=== PATIENT | male | born 1955 | race American Indian/Alaskan Native ===

== ENCOUNTER 2017-01-25 19:40 | Emergency (ER) | payer OTHER ==
[2017-01-25 19:47] VITALS: BP 130/84
[2017-01-25] MEDS ORDERED: GI Cocktail Oral Solution 30 ML PO ONE (20:06)
--- NOTE | 2017-01-25 20:09 | EDM.PDOC ---
{null, ED HPI GENERAL MEDICAL PROBLEM - General Chief Complaint: Gastrointestinal Problem Stated Complaint: GALLBLADDER Time Seen by Provider: 01/25/17 20:07 Source of Information: Reports: Patient History Limitations: Reports: No Limitations - History of Present Illness INITIAL COMMENTS - FREE TEXT/NARRATIVE: 4 days h/o epiG pain, was on off but today been constant, no appetite, throat hurts, no energy, only ate some crackers to day. Epigastric Pain Score (Numeric/FACES): 3 - Related Data Allergies Allergy/AdvReac Type Severity Reaction Status Date / Time No Known Allergies Allergy Verified 01/25/17 19:47 Home Meds: Home Meds Aspirin [Halfprin] 81 mg PO DAILY 04/02/14 [History] Multivitamin with Minerals [Multiple Vitamin] 1 tab PO DAILY 01/26/16 [History] Cyanocobalamin (Vitamin B-12) [Vitamin B-12] 1,000 mcg PO DAILY 01/25/17 [ History] Past Medical History - Past Health History Medical/Surgical History: Denies Medical/Surgical History HEENT History: Reports: None Cardiovascular History: Reports: None Respiratory History: Reports: None Gastrointestinal History: Reports: None Genitourinary History: Reports: None Musculoskeletal History: Reports: Back Pain, Chronic Neurological History: Reports: None Psychiatric History: Reports: None Endocrine/Metabolic History: Reports: None Hematologic History: Reports: None Immunologic History: Reports: None Oncologic (Cancer) History: Reports: Prostate Dermatologic History: Reports: None - Infectious Disease History Infectious Disease History: Reports: None - Past Surgical History Head Surgeries/Procedures: Reports: None Social & Family History - Family History Family Medical History: Noncontributory - Tobacco Use Smoking Status *Q: Current Every Day Smoker Years of Tobacco use: 40 Packs/Tins Daily: 0.5 Used Tobacco, but Quit: No Second Hand Smoke Exposure: Yes - Caffeine Use Caffeine Use: Reports: Coffee, Soda, Tea - Alcohol Use Days Per Week of Alcohol Use: 0 - Recreational Drug Use Recreational Drug Use: No ED ROS GENERAL - Review of Systems Review Of Systems: ROS reveals no pertinent complaints other than HPI. ED EXAM, GI/ABD - Physical Exam Exam: See Below Exam Limited By: No Limitations General Appearance: Alert, WD/WN, Mild Distress, Other (discomfort) Ears: Hearing Grossly Normal Throat/Mouth: Normal Voice, No Airway Compromise Head: Atraumatic Neck: Non-Tender, Full Range of Motion Respiratory/Chest: No Respiratory Distress Cardiovascular: Regular Rate, Rhythm GI/Abdominal: Hyperactive Bowel Sounds, Tenderness, Other (epig). No: Distention, Guarding, Rigidity Neurological: Alert, Oriented, Normal Cognition, Normal Gait, No Motor/Sensory Deficits Psychiatric: Flat Affect Skin Exam: Warm, Dry Lymphatic: No Adenopathy Course - Vital Signs Last Recorded V/S: Last Vital Signs Temp 36.1 C 01/25/17 19:43 Pulse 71 01/25/17 19:43 Resp 18 01/25/17 19:43 BP 130/84 01/25/17 19:43 Pulse Ox 99 01/25/17 19:43 - Orders/Labs/Meds Orders: Active Orders 24 hr Category Date Time Status CULTURE STREP A CONFIRMATION [] Stat Lab 01/25/17 20:05 Results STREP SCRN A RAPID W CULT CONF [] Stat Lab 01/25/17 20:05 Results Labs: Laboratory Tests 01/25/17 01/25/17 Range/Units 20:10 20:10 WBC 6.8 (5.0-10.0) 10^3/uL RBC 5.12 (4.6-6.2) 10^6/uL Hgb 15.5 (14.0-18.0) g/dL Hct 44.0 (40.0-54.0) % MCV 85.9 (80-100) fL MCH 30.3 (27.0-34.0) pg MCHC 35.2 H (33.0-35.0) g/dL Plt Count 219 (150-450) 10^3/uL Neut % (Auto) 54.8 (42.2-75.2) % Lymph % (Auto) 32.5 (20.5-50.1) % [place] % (Auto) 8.9 H (2-8) % Eos % (Auto) 2.8 (1.0-3.0) % Baso % (Auto) 1.0 (0.0-1.0) % Sodium 139 (135-145) mmol/L Potassium 3.6 (3.6-5.0) mmol/L Chloride 109 (101-111) mmol/L Carbon Dioxide 23.0 (21.0-31.0) mmol/L Anion Gap 10.6 BUN 24 H (7-18) mg/dL Creatinine 0.9 (0.6-1.3) mg/dL Est Cr Clr Drug Dosing 92.21 mL/min Estimated GFR (MDRD) > 60 BUN/Creatinine Ratio 26.66 Glucose 103 (74-105) mg/dL Calcium 8.9 (8.4-10.2) mg/dl Total Bilirubin 0.8 (0.2-1.0) mg/dL AST 30 (10-42) IU/L ALT 40 (10-60) IU/L Alkaline Phosphatase 73 (42-121) IU/L Total Protein 7.3 (6.7-8.2) g/dl Albumin 4.5 (3.2-5.5) g/dl Globulin 2.8 Albumin/Globulin Ratio 1.61 Amylase 35 (28-100) U/L Lipase 24 (22-51) U/L Meds: Medications Discontinued Medications Generic Name Dose Route Start Last Admin Trade Name Freq PRN Reason Stop Dose Admin Al Hydroxide/Mg Hydroxide 30 ml 01/25/17 20:06 01/25/17 20:11 Gi Cocktail PO 01/25/17 20:07 30 ml ONETIME ONE Administration - Re-Assessments/Exams Free Text/Narrative Re-Assessment/Exam: 01/25/17 21:04 s/p GI cocktail = much better. Departure - Departure Time of Disposition: 21:04 Disposition: Home, Self-Care 01 Condition: good Clinical Impression: GERD (gastroesophageal reflux disease) Qualifiers: Esophagitis presence: with esophagitis Qualified Code(s): K21.0 - Gastro- esophageal reflux disease with esophagitis - Discharge Information Instructions: Food Choices for Gastroesophageal Reflux Disease, Adult Forms: ED Department Discharge Additional Instructions: 1) avoid fatty oily fried foods 2) call family doctor tomorrow for GASTROCOPY and GALL BLADDER ULTRASOUND. 3) recheck as needed rx given: zantac 150mg bid x 20 - My Orders Last 24 Hours: My Active Orders 01/25/17 20:05 CULTURE STREP A CONFIRMATION [RM] Stat STREP SCRN A RAPID W CULT CONF [RM] Stat - Assessment/Plan Last 24 Hours: My Active Orders 01/25/17 20:05 CULTURE STREP A CONFIRMATION [RM] Stat STREP SCRN A RAPID W CULT CONF [RM] Stat }
[2017-01-25 20:37] LABS: CHLORIDE,CL 109 mmol/L (101-111); SODIUM,NA 139 mmol/L (135-145)
== END 2017-01-25 21:11 | disposition home or self-care (01) ==
LOC: DL.ED 19:40
DX: K21.0 Gastro-esophageal reflux disease with esophagitis (principal); F17.210 Nicotine dependence, cigarettes, uncomplicated; Z79.899 Other long term (current) drug therapy; Z79.82 Long term (current) use of aspirin
CPT/HCPCS: 36415; 80053; 82150; 83690; 85025; 87081; 87430; 99284; A9270; 99283

== ENCOUNTER 2017-07-09 20:33 | Emergency (ER) | payer OTHER ==
[2017-07-09 20:39] VITALS: BP 134/75
[2017-07-09] MEDS ORDERED: Nitroglycerin 0.4 MG Tab.SL SL ONE (20:40)
[2017-07-09] MEDS ORDERED: Aspirin 81 MG Tab.Chew PO ONE (20:41)
[2017-07-09] MEDS ORDERED: Aspirin 81 MG Tab.Chew ONE (20:50)
[2017-07-09 21:19] LABS: CHLORIDE,CL 105 mmol/L (101-111); SODIUM,NA 140 mmol/L (135-145)
[2017-07-09] MEDS ORDERED: Morphine 2 MG/ML Syringe IVPUSH ONE (21:51)
--- NOTE | 2017-07-10 03:23 | EDM.PDOC ---
ED HPI GENERAL MEDICAL PROBLEM - General Chief Complaint: Chest Pain Stated Complaint: CHEST PAIN Time Seen by Provider: 07/09/17 20:40 Source of Information: Reports: Patient History Limitations: Reports: No Limitations - History of Present Illness INITIAL COMMENTS - FREE TEXT/NARRATIVE: ED with c/o chest pain with onset approximately 45 minutes [employer]. Described as tightness with radiation to shoulder with intermittent sharp sensations that made him "just see black". Was lying in bed at onset and couldn't get up as made pain worse. Family noted similarr symptoms prior and was told it was referred type pain from disc degeneration n neck. Also patient has had blackouts over past 3 weeks to [employer]. No nausea or sweating with pain, Has felt SOB at times. Pain worse with deep breathing and movement. Onset: Today Location: Reports: Chest Quality: Reports: Sharp, Other (tightness) Worsens with: Reports: Breathing, Movement Associated Symptoms: Denies: Cough, Nausea/Vomiting Middle Chest Pain Score (Numeric/FACES): 5 - Related Data Allergies Allergy/AdvReac Type Severity Reaction Status Date / Time No Known Allergies Allergy Verified 07/09/17 20:36 Home Meds: Home Meds Aspirin [Halfprin] 81 mg PO DAILY 04/02/14 [History] Multivitamin with Minerals [Multiple Vitamin] 1 tab PO DAILY 01/26/16 [History] Past Medical History - Past Health History Medical/Surgical History: Denies Medical/Surgical History HEENT History: Reports: None Cardiovascular History: Reports: None Respiratory History: Reports: None Gastrointestinal History: Reports: None Genitourinary History: Reports: None Musculoskeletal History: Reports: Back Pain, Chronic Neurological History: Reports: None Psychiatric History: Reports: None Endocrine/Metabolic History: Reports: None Hematologic History: Reports: None Immunologic History: Reports: None Oncologic (Cancer) History: Reports: Prostate Dermatologic History: Reports: None - Infectious Disease History Infectious Disease History: Reports: None - Past Surgical History Head Surgeries/Procedures: Reports: None Social & Family History - Family History Family Medical History: Noncontributory - Tobacco Use Smoking Status *Q: Light Tobacco Smoker Years of Tobacco use: 40 Packs/Tins Daily: 0.5 Used Tobacco, but Quit: No Second Hand Smoke Exposure: Yes - Caffeine Use Caffeine Use: Reports: Coffee Other Caffeine Use: lots of coffeetoday6-7 cups - Alcohol Use Days Per Week of Alcohol Use: 0 - Recreational Drug Use Recreational Drug Use: No ED ROS GENERAL - Review of Systems Review Of Systems: See Below Constitutional: Reports: No Symptoms HEENT: Reports: No Symptoms Respiratory: Reports: Other (chest pain with deep breathing) Cardiovascular: Reports: Chest Pain, Syncope GI/Abdominal: Reports: No Symptoms : Reports: No Symptoms Musculoskeletal: Reports: Neck Pain Skin: Reports: No Symptoms Neurological: Reports: No Symptoms ED EXAM, GENERAL - Physical Exam Exam: See Below Exam Limited By: No Limitations General Appearance: Alert, Anxious, Moderate Distress Ears: Normal External Exam, Normal TMs Ear Exam: Bilateral Ear: TM normal Nose: Normal Inspection Throat/Mouth: Normal Inspection Head: Atraumatic, Normocephalic Respiratory/Chest: No Respiratory Distress, Decreased Breath Sounds (bases) Cardiovascular: Normal Peripheral Pulses, Regular Rate, Rhythm, No Edema GI/Abdominal: Normal Bowel Sounds, Soft, Non-Tender Back Exam: Paraspinal Tenderness (cervical), Vertebral Tenderness Extremities: Normal Inspection. No: Pedal Edema Neurological: Alert, Oriented, Normal Cognition Psychiatric: Normal Affect Skin Exam: Warm, Dry, Intact, Normal Color Course - Vital Signs Last Recorded V/S: Last Vital Signs Temp 96.6 F 07/09/17 20:36 Pulse 76 07/09/17 20:36 Resp 20 07/09/17 20:36 BP 134/75 07/09/17 20:36 Pulse Ox 100 07/09/17 20:36 - Orders/Labs/Meds Orders: Active Orders 24 hr Category Date Time Status EKG Documentation Completion [RC] URGENT Care 07/09/17 20:39 Active Labs: Laboratory Tests 07/09/17 07/09/17 07/09/17 Range/Units 20:46 20:46 20:46 WBC 7.3 (5.0-10.0) 10^3/uL RBC 5.45 (4.6-6.2) 10^6/uL Hgb 16.1 (14.0-18.0) g/dL Hct 46.3 (40.0-54.0) % MCV 85.0 (80-100) fL MCH 29.5 (27.0-34.0) pg MCHC 34.8 (33.0-35.0) g/dL Plt Count 232 (150-450) 10^3/uL Neut % (Auto) 58.7 (42.2-75.2) % Lymph % (Auto) 29.4 (20.5-50.1) % [place] % (Auto) 8.5 H (2-8) % Eos % (Auto) 2.9 (1.0-3.0) % Baso % (Auto) 0.5 (0.0-1.0) % PT 9.1 (9.0-12.0) SEC INR 0.9 (0.9-1.2) D-Dimer, Quantitative < 100 (0-400) ng/mL Sodium 140 (135-145) mmol/L Potassium 3.7 (3.6-5.0) mmol/L Chloride 105 (101-111) mmol/L Carbon Dioxide 24.0 (21.0-31.0) mmol/L Anion Gap 14.7 BUN 19 H (7-18) mg/dL Creatinine 1.1 (0.6-1.3) mg/dL Est Cr Clr Drug Dosing 74.46 mL/min Estimated GFR (MDRD) > 60 BUN/Creatinine Ratio 17.27 Glucose 103 (74-105) mg/dL Calcium 9.7 (8.4-10.2) mg/dl Magnesium (1.8-2.5) mg/dL Total Bilirubin 0.8 (0.2-1.0) mg/dL AST 31 (10-42) IU/L ALT 40 (10-60) IU/L Alkaline Phosphatase 99 (42-121) IU/L CK-MB (CK-2) (0.4-4.7) ng/mL Troponin I 0.02 (0.00-0.02) ng/ml Total Protein 7.8 (6.7-8.2) g/dl Albumin 4.9 (3.2-5.5) g/dl Globulin 2.9 Albumin/Globulin Ratio 1.69 Amylase 42 (28-100) U/L Lipase 36 (22-51) U/L Urine Color (YELLOW) Urine Appearance (CLEAR) Urine pH (5.0-9.0) Ur Specific [place] (1.005-1.030) Urine Protein (NEGATIVE) Urine Glucose (UA) (NEGATIVE) Urine Ketones (NEGATIVE) Urine Occult Blood (NEGATIVE) Urine Nitrite (NEGATIVE) Urine Bilirubin (NEGATIVE) Urine Urobilinogen (0.2-1.0) mg/dL Ur Leukocyte Esterase (NEGATIVE) Urine RBC /HPF Urine WBC (0-5/HPF) /HPF Ur Epithelial Cells /HPF Amorphous Sediment (0/HPF) /HPF Urine Bacteria (0-FEW/HPF) /HPF Urine Mucus /LPF Urine Opiates Screen (NEGATIVE) Ur Oxycodone Screen (NEGATIVE) Urine Methadone Screen (NEGATIVE) Ur Barbiturates Screen (NEGATIVE) U Tricyclic Antidepress (NEGATIVE) Ur Phencyclidine Scrn (NEGATIVE) Ur Amphetamine Screen (NEGATIVE) U Methamphetamines Scrn (NEGATIVE) Urine MDMA Screen (NEGATIVE) U Benzodiazepines Scrn (NEGATIVE) Urine Cocaine Screen (NEGATIVE) U Marijuana (THC) Screen (NEGATIVE) 07/09/17 07/09/17 07/09/17 Range/Units 20:46 20:46 21:15 WBC (5.0-10.0) 10^3/uL RBC (4.6-6.2) 10^6/uL Hgb (14.0-18.0) g/dL Hct (40.0-54.0) % MCV (80-100) fL MCH (27.0-34.0) pg MCHC (33.0-35.0) g/dL Plt Count (150-450) 10^3/uL Neut % (Auto) (42.2-75.2) % Lymph % (Auto) (20.5-50.1) % [place] % (Auto) (2-8) % Eos % (Auto) (1.0-3.0) % Baso % (Auto) (0.0-1.0) % PT (9.0-12.0) SEC INR (0.9-1.2) D-Dimer, Quantitative (0-400) ng/mL Sodium (135-145) mmol/L Potassium (3.6-5.0) mmol/L Chloride (101-111) mmol/L Carbon Dioxide (21.0-31.0) mmol/L Anion Gap BUN (7-18) mg/dL Creatinine (0.6-1.3) mg/dL Est Cr Clr Drug Dosing mL/min Estimated GFR (MDRD) BUN/Creatinine Ratio Glucose (74-105) mg/dL Calcium (8.4-10.2) mg/dl Magnesium 2.1 (1.8-2.5) mg/dL Total Bilirubin (0.2-1.0) mg/dL AST (10-42) IU/L ALT (10-60) IU/L Alkaline Phosphatase (42-121) IU/L CK-MB (CK-2) 1.10 (0.4-4.7) ng/mL Troponin I (0.00-0.02) ng/ml Total Protein (6.7-8.2) g/dl Albumin (3.2-5.5) g/dl Globulin Albumin/Globulin Ratio Amylase (28-100) U/L Lipase (22-51) U/L Urine Color (YELLOW) Urine Appearance (CLEAR) Urine pH (5.0-9.0) Ur Specific [place] (1.005-1.030) Urine Protein (NEGATIVE) Urine Glucose (UA) (NEGATIVE) Urine Ketones (NEGATIVE) Urine Occult Blood (NEGATIVE) Urine Nitrite (NEGATIVE) Urine Bilirubin (NEGATIVE) Urine Urobilinogen (0.2-1.0) mg/dL Ur Leukocyte Esterase (NEGATIVE) Urine RBC /HPF Urine WBC (0-5/HPF) /HPF Ur Epithelial Cells /HPF Amorphous Sediment (0/HPF) /HPF Urine Bacteria (0-FEW/HPF) /HPF Urine Mucus /LPF Urine Opiates Screen Negative (NEGATIVE) Ur Oxycodone Screen Negative (NEGATIVE) Urine Methadone Screen Negative (NEGATIVE) Ur Barbiturates Screen Negative (NEGATIVE) U Tricyclic Antidepress Negative (NEGATIVE) Ur Phencyclidine Scrn Negative (NEGATIVE) Ur Amphetamine Screen Negative (NEGATIVE) U Methamphetamines Scrn Negative (NEGATIVE) Urine MDMA Screen Negative (NEGATIVE) U Benzodiazepines Scrn Negative (NEGATIVE) Urine Cocaine Screen Negative (NEGATIVE) U Marijuana (THC) Screen Negative (NEGATIVE) 07/09/17 Range/Units 21:15 WBC (5.0-10.0) 10^3/uL RBC (4.6-6.2) 10^6/uL Hgb (14.0-18.0) g/dL Hct (40.0-54.0) % MCV (80-100) fL MCH (27.0-34.0) pg MCHC (33.0-35.0) g/dL Plt Count (150-450) 10^3/uL Neut % (Auto) (42.2-75.2) % Lymph % (Auto) (20.5-50.1) % [place] % (Auto) (2-8) % Eos % (Auto) (1.0-3.0) % Baso % (Auto) (0.0-1.0) % PT (9.0-12.0) SEC INR (0.9-1.2) D-Dimer, Quantitative (0-400) ng/mL Sodium (135-145) mmol/L Potassium (3.6-5.0) mmol/L Chloride (101-111) mmol/L Carbon Dioxide (21.0-31.0) mmol/L Anion Gap BUN (7-18) mg/dL Creatinine (0.6-1.3) mg/dL Est Cr Clr Drug Dosing mL/min Estimated GFR (MDRD) BUN/Creatinine Ratio Glucose (74-105) mg/dL Calcium (8.4-10.2) mg/dl Magnesium (1.8-2.5) mg/dL Total Bilirubin (0.2-1.0) mg/dL AST (10-42) IU/L ALT (10-60) IU/L Alkaline Phosphatase (42-121) IU/L CK-MB (CK-2) (0.4-4.7) ng/mL Troponin I (0.00-0.02) ng/ml Total Protein (6.7-8.2) g/dl Albumin (3.2-5.5) g/dl Globulin Albumin/Globulin Ratio Amylase (28-100) U/L Lipase (22-51) U/L Urine Color Yellow (YELLOW) Urine Appearance Slightly cloudy (CLEAR) Urine pH 5.5 (5.0-9.0) Ur Specific [place] 1.025 (1.005-1.030) Urine Protein Negative (NEGATIVE) Urine Glucose (UA) Negative (NEGATIVE) Urine Ketones Trace H (NEGATIVE) Urine Occult Blood Negative (NEGATIVE) Urine Nitrite Negative (NEGATIVE) Urine Bilirubin Negative (NEGATIVE) Urine Urobilinogen 1.0 (0.2-1.0) mg/dL Ur Leukocyte Esterase Negative (NEGATIVE) Urine RBC 0-5 /HPF Urine WBC 0-5 (0-5/HPF) /HPF Ur Epithelial Cells Rare /HPF Amorphous Sediment Rare (0/HPF) /HPF Urine Bacteria Rare (0-FEW/HPF) /HPF Urine Mucus Moderate H /LPF Urine Opiates Screen (NEGATIVE) Ur Oxycodone Screen (NEGATIVE) Urine Methadone Screen (NEGATIVE) Ur Barbiturates Screen (NEGATIVE) U Tricyclic Antidepress (NEGATIVE) Ur Phencyclidine Scrn (NEGATIVE) Ur Amphetamine Screen (NEGATIVE) U Methamphetamines Scrn (NEGATIVE) Urine MDMA Screen (NEGATIVE) U Benzodiazepines Scrn (NEGATIVE) Urine Cocaine Screen (NEGATIVE) U Marijuana (THC) Screen (NEGATIVE) Meds: Medications Discontinued Medications Generic Name Dose Route Start Last Admin Trade Name Darrion PRN Reason Stop Dose Admin Aspirin 162 mg 07/09/17 20:41 Aspirin PO 07/09/17 20:42 ONETIME ONE Aspirin Confirm 07/09/17 20:50 Aspirin Administered 07/09/17 20:51 Dose 162 mg .ROUTE .STK-MED ONE Morphine Sulfate 2 mg 07/09/17 21:51 07/09/17 21:54 Morphine IVPUSH 07/09/17 21:52 2 mg ONETIME ONE Administration Nitroglycerin 0.4 mg 07/09/17 20:40 Nitrostat SL 07/09/17 20:41 ONETIME ONE - Radiology Interpretation Free Text/Narrative:: CT head no acute findings CXR atelectasis left base - Re-Assessments/Exams Free Text/Narrative Re-Assessment/Exam: Patient assisted to upright to assess lungs, Immediately following , appeared dazed, verbal responses slowed, disoriented to place, could not give his name. Slow clearing of mentation. Vitals stable. EKG unremarkable. NSR . Discussion with family, daughters note patient thought to have seizure hx over 30 years ago. Had been worked up in [place] and [place] and unable to "find anything". No prior hx of being on seizure medications. Last workup for neck pain 1-[address] Ba ED, accepting of patient in transfer. Tx via [facility]. Departure - Departure Time of Disposition: 21:45 Disposition: DC/Tfer to Acute Hospital 02 Reason for Transfer *Q: Other Condition: Undetermined Clinical Impression: Atypical chest pain Altered mental status, unspecified Qualifiers: Altered mental status type: disorientation Qualified Code(s): R41.0 - Disorientation, unspecified Referrals: Paul Bennett [Primary Care Provider] - Forms: ED Department Discharge - My Orders Last 24 Hours: My Active Orders 07/09/17 20:39 EKG Documentation Completion [RC] URGENT - Assessment/Plan Last 24 Hours: My Active Orders 07/09/17 20:39 EKG Documentation Completion [RC] URGENT
--- NOTE | 2017-07-10 16:22 | EKG ---
07/09/2017 - DEVANTE MCKENZIE I reviewed the EKG and agree with the machine reading. [facility] /[id number]
== END 2017-07-09 22:10 ==
LOC: DL.ED 20:33
DX: R07.89 Other chest pain (principal); R41.0 Disorientation, unspecified; F17.210 Nicotine dependence, cigarettes, uncomplicated; Z79.82 Long term (current) use of aspirin
CPT/HCPCS: 36415; 70450; 71010; 80053; 80305; 81001; 82150; 82553; 83690; 83735; 84484; 85025; 85379; 85610; 93005; 99285; J2270

== ENCOUNTER → 2017-08-28 | Day surgery (SDC) | payer OTHER ==
[~2017-08-28] MED LIST: Dextrose 5%-0.45% NaCl 1,000 ML IV ONE; Dextrose 5%-0.45% NaCl 1,000 ML IV SCH; Midazolam 1 MG/ML 2 ML SDV IV ONE; Midazolam 1 MG/ML 2 ML SDV ONE; Sodium Chloride 0.9% 10 ML Syringe FLUSH PRN; fentaNYL 100 MCG/2 ML SDV IV ONE; fentaNYL 100 MCG/2 ML SDV ONE
--- NOTE | 2017-08-28 18:20 | OR ---
DATE: 08/28/2017 PROCEDURE: Total colonoscopy, NBI, and cold snare polypectomy. INSTRUMENT USED: CF-H180AL Olympus videocolonoscope. PREMEDICATIONS: Fentanyl 100 mcg intravenous and Versed 4 mg intravenous. Nasal O2 cannula. The procedure was done under pulse oximetry, BP recording, and court recording monitor. INDICATION: The patient with previous colonic tubular adenoma. Surveillance colonoscopic examination is done for detection of any polypoid lesions and removal, endoscopic hemostasis therapy if needed. DESCRIPTION OF PROCEDURE: Initial rectal exam was unremarkable. Rigid anoscopy showed internal hemorrhoids without bleeding from them. The colonoscope was passed with ease. Few scattered diverticula were noted in the distal left colon. The scope was passed with ease up to the ileocecal area, photographs were taken of the normal-appearing cecum identified by the landmarks of appendiceal orifice and double-bulged ileocecal folds. No bleeding was noted from any of the visualized areas at the commencement of the examination. No stricture. No vascular ectasia. No large isolated ulcerations seen. No evidence of diffuse inflammatory bowel disease in the form of friability, contact bleeding, or ulcerations. In the mid ascending colon, 3 mm sized benign- appearing polyp was noted, NBI views were obtained, cold snare polypectomy was done, and the tissue was retrieved and sent for histopathology. Probing the proximal sides of folds and flexures using adequate distention and clearing up the stool material, withdrawal of the scope was made. No bleeding was noted from any of the visualized areas at the completion of examination. IMPRESSION: 1. Internal hemorrhoids. 2. Diverticulosis. 3. Diminutive ascending colon polyp. The patient tolerated the procedure well. [facility] /[id number]
--- NOTE | 2017-08-28 18:20 | LETTER ---
08/28/2017 Ktaherine Marsh MD [facility] [address] [place] [address] RE: DEVANTE MAC : [address] Marsh: Mr. Devante Mac had colonoscopic examination done this morning and he tolerated the procedure well. I herewith send a copy of the endoscopy note and photographs for your review. Thank you. Sincerely, [facility] /[id number]
== END ==
LOC: DL.ENDO 05:40
PROVIDERS: ATTEND Internal Medicine Gastroenterology
DX: Z12.11 Encounter for screening for malignant neoplasm of colon (principal); F17.210 Nicotine dependence, cigarettes, uncomplicated; E66.09 Other obesity due to excess calories; M19.90 Unspecified osteoarthritis, unspecified site; K64.8 Other hemorrhoids; K57.30 Diverticulosis of large intestine without perforation or abscess without bleeding; D12.2 Benign neoplasm of ascending colon; Z86.010 Personal history of colon polyps; Z85.46 Personal history of malignant neoplasm of prostate
CPT/HCPCS: 45385; J2250; J3010; J7042

== ENCOUNTER 2018-10-27 16:41 | Emergency (ER) | payer OTHER ==
[2018-10-27] MEDS ORDERED: Codeine/guaiFENesin 100-10 MG/5 ML Syrup 5 ML Cup PO ONE ×2 (16:42→16:55)
[2018-10-27] MEDS ORDERED: Amoxicillin/Clavulanate K 875-125 MG Tab PO ONE (16:54)
[2018-10-27] MEDS ORDERED: methylPREDNISolone Sodium Succinate 125 MG/2 ML SDV IVPUSH ONE (16:54)
[2018-10-27 16:56] VITALS: BP 131/87
--- NOTE | 2018-10-27 17:02 | EDM.PDOC ---
Scribed by Yovana Dunn 10/27/18 [id number] for Kilo Swift PA ED HPI GENERAL MEDICAL PROBLEM - General Chief Complaint: Respiratory Problem Stated Complaint: HEADACHE,SORE THROAT,COUGH Time Seen by Provider: 10/27/18 16:50 Source of Information: Reports: Patient, RN, RN Notes Reviewed History Limitations: Reports: No Limitations - History of Present Illness INITIAL COMMENTS - FREE TEXT/NARRATIVE: Patient states that he started on not feeling well. On Sunday he had drainage and a headache. He now has a cough and sneeze. Last night he had increased pain in his neck. He was pitting blood yesterday. Onset Date: 10/24/18 Duration: Getting Worse Location: Reports: Generalized Quality: Reports: Ache Severity: Moderate Improves with: Reports: None Worsens with: Reports: None Associated Symptoms: Reports: No Other Symptoms - Related Data Allergies Allergy/AdvReac Type Severity Reaction Status Date / Time No Known Allergies Allergy Verified 08/27/17 06:56 Home Meds: Home Meds Aspirin [Halfprin] 81 mg PO DAILY 04/02/14 [History] Multivitamin with Minerals [Multiple Vitamin] 1 tab PO DAILY 01/26/16 [History] Cyanocobalamin (Vitamin B-12) [Cyanocobalamin Injection] 1 injection IM .MONTHLY 08/27/17 [History] Gabapentin [Neurontin] 1 cap PO TID 08/27/17 [History] Ibuprofen 1 tab PO Q6H PRN 08/27/17 [History] Past Medical History - Past Health History Medical/Surgical History: Denies Medical/Surgical History HEENT History: Reports: None Cardiovascular History: Reports: None Respiratory History: Reports: COPD, Sleep Apnea Gastrointestinal History: Reports: None, Colon Polyp Genitourinary History: Reports: None, Prostate Disorder Musculoskeletal History: Reports: Arthritis, Back Pain, Chronic, Fracture, Neck Pain, Chronic, Other (See Below) Other Musculoskeletal History: SHOULDER PAIN D/T INCOMPLETE TEAR OF ROTATOR CUFF Neurological History: Reports: Headaches, Chronic, Other (See Below) Other Neuro History: ENCEPHALOPATHY Psychiatric History: Reports: None Endocrine/Metabolic History: Reports: None Hematologic History: Reports: None Immunologic History: Reports: None Oncologic (Cancer) History: Reports: Prostate Dermatologic History: Reports: None - Infectious Disease History Infectious Disease History: Reports: None - Past Surgical History Head Surgeries/Procedures: Reports: None HEENT Surgical History: Reports: Other (See Below) Other HEENT Surgeries/Procedures: UVULAPALATOPLASTY. SEPTOPLASTY Cardiovascular Surgical History: Reports: Other (See Below) Other Cardiovascular Surgeries/Procedures: CARDIAC CATHETERIZATION GI Surgical History: Reports: Polypectomy Male Surgical History: Reports: Prostatectomy, Other (See Below) Other Male Surgeries/Procedures: BLADDER SHINCTEROTOMY Musculoskeletal Surgical History: Reports: Other (See Below) Other Musculoskeletal Surgeries/Procedures:: ORIF OF FRACTURED RIGHT ANKLE Social & Family History - Family History Family Medical History: Noncontributory - Caffeine Use Caffeine Use: Reports: Coffee Other Caffeine Use: lots of coffeetoday6-7 cups ED ROS GENERAL - Review of Systems Review Of Systems: ROS reveals no pertinent complaints other than HPI. ED EXAM, GENERAL - Physical Exam Exam: See Below Exam Limited By: No Limitations General Appearance: Alert, WD/WN, No Apparent Distress Eye Exam: Bilateral Eye: EOMI, Normal Inspection, PERRL Ears: Normal External Exam, Normal Canal, Hearing Grossly Normal, Normal TMs Nose: Normal Inspection, Normal Mucosa, No Blood Throat/Mouth: Normal Inspection, Normal Lips, Normal Teeth, Normal Gums, Normal Oropharynx, Normal Voice, No Airway Compromise Head: Other (sinus pressure) Neck: Other (generalized chronic pain which increases with cough) Respiratory/Chest: No Respiratory Distress, Lungs Clear, Normal Breath Sounds, No Accessory Muscle Use, Chest Non-Tender Cardiovascular: Normal Peripheral Pulses, Regular Rate, Rhythm, No Edema, No Gallop, No JVD, No Murmur, No Rub GI/Abdominal: Normal Bowel Sounds, Soft, Non-Tender, No Organomegaly, No Distention, No Abnormal Bruit, No Mass (Male) Exam: Deferred Rectal (Males) Exam: Deferred Back Exam: Normal Inspection, Full Range of Motion, NT Extremities: Normal Inspection, Normal Range of Motion, Non-Tender, Normal Capillary Refill, No Pedal Edema Neurological: Alert, Oriented, CN II-XII Intact, Normal Cognition, Normal Gait, Normal Reflexes, No Motor/Sensory Deficits Psychiatric: Normal Affect, Normal Mood Skin Exam: Warm, Dry, Intact, Normal Color, No Rash Lymphatic: No Adenopathy Course - Vital Signs Last Recorded V/S: Last Vital Signs Temp 36.8 C 10/27/18 16:51 Pulse 80 10/27/18 16:51 Resp 18 10/27/18 16:51 BP 131/87 10/27/18 16:51 Pulse Ox 99 10/27/18 16:51 - Orders/Labs/Meds Meds: Medications Discontinued Medications Generic Name Dose Route Start Last Admin Trade Name Darrion PRN Reason Stop Dose Admin Amoxicillin/Clavulanate Potassium 1 tab 10/27/18 16:54 Augmentin 875 Mg/125 Mg PO 10/27/18 16:55 ONETIME ONE Guaifenesin/Codeine Phosphate 5 ml 10/27/18 16:55 Robitussin Ac PO 10/27/18 16:56 ONETIME ONE Methylprednisolone Sodium Succinate 125 mg 10/27/18 16:54 Solu-Medrol IVPUSH 10/27/18 16:55 ONETIME ONE Departure - Departure Time of Disposition: 16:58 Disposition: Home, Self-Care 01 Condition: Fair Clinical Impression: Maxillary sinusitis, acute Qualifiers: Recurrence: non-recurrent Qualified Code(s): J01.00 - Acute maxillary sinusitis , unspecified - Discharge Information *PRESCRIPTION DRUG MONITORING PROGRAM REVIEWED*: Not Applicable *COPY OF PRESCRIPTION DRUG MONITORING REPORT IN PATIENT SWEETIE: Not Applicable Instructions: Sinusitis, Adult, [id number] Forms: ED Department Discharge Care Plan Goals: The patient was advised of the examination results during the visit. The patient was given an injection of SoluMedrol, oral dose of Robitussin AC and Augmentin while in the ED. The patient was discharged with a script for Augmentin (500/125) to take 1 by mouth 2 times per day for 10 days and Robitussin AC #100 mL to take 10 mL by mouth at bedtime as needed for cough. The patient was also sent home with a dose of Robitussin AC to take at bedtime tonight. If the patient has any additional symptoms or concerns, the patient should either visit his primary care facility or return to the emergency department. I have read and agree with the documentation that has been completed regarding this visit. By signing this record, I attest that the documentation was completed in my physical presence and is an accurate record of the encounter.
[2018-10-27] MEDS ORDERED: Codeine/guaiFENesin 100-10 MG/5 ML Syrup 5 ML Cup ONE (17:11)
== END 2018-10-27 17:28 | disposition home or self-care (01) ==
LOC: DL.ED 16:41
DX: J01.00 Acute maxillary sinusitis, unspecified (principal); Z79.82 Long term (current) use of aspirin; Z79.899 Other long term (current) drug therapy
CPT/HCPCS: 96372; 99283; A9270-GY; J2930

== ENCOUNTER 2019-02-28 21:58 | Emergency (ER) | payer OTHER ==
[2019-02-28 22:04] VITALS: BP 144/66
--- NOTE | 2019-02-28 22:09 | EDM.PDOC ---
ED HPI GENERAL MEDICAL PROBLEM - General Chief Complaint: Respiratory Problem Stated Complaint: BROUGHT BY AMBULNACE Time Seen by Provider: 02/28/19 22:08 Source of Information: Reports: Patient History Limitations: Reports: No Limitations - History of Present Illness INITIAL COMMENTS - FREE TEXT/NARRATIVE: had neck surgery yesterday, d/c today, got home at noon was tired and went to sleep. then woke up with SOB and been coughing up brown tinged mucous all day. Head Pain Score (Numeric/FACES): 5 Chest Pain Score (Numeric/FACES): 5 - Related Data Allergies Allergy/AdvReac Type Severity Reaction Status Date / Time No Known Allergies Allergy Verified 08/27/17 06:56 Home Meds: Home Meds Aspirin [Halfprin] 81 mg PO DAILY 04/02/14 [History] Multivitamin with Minerals [Multiple Vitamin] 1 tab PO DAILY 01/26/16 [History] Cyanocobalamin (Vitamin B-12) [Cyanocobalamin Injection] 1 injection IM .MONTHLY 08/27/17 [History] Gabapentin [Neurontin] 1 cap PO TID 08/27/17 [History] Ibuprofen 1 tab PO Q6H PRN 08/27/17 [History] Past Medical History - Past Health History Medical/Surgical History: Denies Medical/Surgical History HEENT History: Reports: None Cardiovascular History: Reports: None Respiratory History: Reports: COPD, Sleep Apnea Gastrointestinal History: Reports: None, Colon Polyp Genitourinary History: Reports: None, Prostate Disorder Musculoskeletal History: Reports: Arthritis, Back Pain, Chronic, Fracture, Neck Pain, Chronic, Other (See Below) Other Musculoskeletal History: SHOULDER PAIN D/T INCOMPLETE TEAR OF ROTATOR CUFF Neurological History: Reports: Headaches, Chronic, Other (See Below) Other Neuro History: ENCEPHALOPATHY Psychiatric History: Reports: None Endocrine/Metabolic History: Reports: None Hematologic History: Reports: None Immunologic History: Reports: None Oncologic (Cancer) History: Reports: Prostate Dermatologic History: Reports: None - Infectious Disease History Infectious Disease History: Reports: None - Past Surgical History Head Surgeries/Procedures: Reports: None HEENT Surgical History: Reports: Other (See Below) Other HEENT Surgeries/Procedures: UVULAPALATOPLASTY. SEPTOPLASTY Cardiovascular Surgical History: Reports: Other (See Below) Other Cardiovascular Surgeries/Procedures: CARDIAC CATHETERIZATION GI Surgical History: Reports: Polypectomy Male Surgical History: Reports: Prostatectomy, Other (See Below) Other Male Surgeries/Procedures: BLADDER SHINCTEROTOMY Musculoskeletal Surgical History: Reports: Other (See Below) Other Musculoskeletal Surgeries/Procedures:: ORIF OF FRACTURED RIGHT ANKLE Social & Family History - Family History Family Medical History: Noncontributory - Tobacco Use Smoking Status *Q: Current Every Day Smoker Years of Tobacco use: 21 Packs/Tins Daily: 0.3 - Caffeine Use Caffeine Use: Reports: Coffee Other Caffeine Use: lots of coffeetoday6-7 cups - Recreational Drug Use Recreational Drug Use: No ED ROS GENERAL - Review of Systems Review Of Systems: ROS reveals no pertinent complaints other than HPI. ED EXAM, GENERAL - Physical Exam Exam: See Below Course - Vital Signs Last Recorded V/S: Last Vital Signs Temp 36.9 C 02/28/19 22:01 Pulse 78 02/28/19 22:01 Resp 18 02/28/19 22:01 BP 144/66 H 02/28/19 22:01 Pulse Ox 96 02/28/19 22:01 - Orders/Labs/Meds Orders: Active Orders 24 hr Category Date Time Status EKG 12 Lead [EKG Documentation Completion] [RC] STAT Care 02/28/19 22:15 Active Labs: Laboratory Tests 02/28/19 02/28/19 02/28/19 Range/Units 22:16 22:16 22:16 WBC 16.5 H (5.0-10.0) 10^3/uL RBC 4.69 (4.6-6.2) 10^6/uL Hgb 14.1 D (14.0-18.0) g/dL Hct 40.4 (40.0-54.0) % MCV 86.1 (80-100) fL MCH 30.1 (27.0-34.0) pg MCHC 34.9 (33.0-35.0) g/dL Plt Count 225 (150-450) 10^3/uL Neut % (Auto) 79.3 H (42.2-75.2) % Lymph % (Auto) 12.3 L (20.5-50.1) % [place] % (Auto) 8.1 H (2-8) % Eos % (Auto) 0.1 L (1.0-3.0) % Baso % (Auto) 0.2 (0.0-1.0) % D-Dimer, Quantitative 179 (0-400) ng/mL Sodium 140 (135-145) mmol/L Potassium 3.5 L (3.6-5.0) mmol/L Chloride 107 (101-111) mmol/L Carbon Dioxide 23.0 (21.0-31.0) mmol/L Anion Gap 13.5 BUN 15 (7-18) mg/dL Creatinine 1.2 (0.6-1.3) mg/dL Est Cr Clr Drug Dosing 66.46 mL/min Estimated GFR (MDRD) > 60 BUN/Creatinine Ratio 12.50 Glucose 113 H (74-105) mg/dL Calcium 8.5 (8.4-10.2) mg/dl Total Bilirubin 0.8 (0.2-1.0) mg/dL AST 29 (10-42) IU/L ALT 33 (10-60) IU/L Alkaline Phosphatase 72 (42-121) IU/L Troponin I < 0.02 (0.00-0.02) ng/ml Total Protein 6.7 (6.7-8.2) g/dl Albumin 4.0 (3.2-5.5) g/dl Globulin 2.7 Albumin/Globulin Ratio 1.48 - Re-Assessments/Exams Free Text/Narrative Re-Assessment/Exam: 03/01/19 00:37 results discussed with pt & family. pt states feels fine now and prefers to go home Departure - Departure Time of Disposition: 00:38 Disposition: Home, Self-Care 01 Condition: Good Clinical Impression: Post-op pain Dyspnea Qualifiers: Dyspnea type: other forms of dyspnea Qualified Code(s): R06.09 - Other forms of dyspnea - Discharge Information Instructions: Shortness of Breath, Adult, [id number] Forms: ED Department Discharge Additional Instructions: 1) rest 2) don't sleep flat 3) sleep in recliner 4) recheck if there is any change or concern - My Orders Last 24 Hours: My Active Orders 02/28/19 22:15 EKG 12 Lead [EKG Documentation Completion] [RC] STAT - Assessment/Plan Last 24 Hours: My Active Orders 02/28/19 22:15 EKG 12 Lead [EKG Documentation Completion] [RC] STAT
[2019-02-28 22:40] LABS: ANION GAP 13.5; CHLORIDE,CL 107 mmol/L (101-111); SODIUM,NA 140 mmol/L (135-145)
== END 2019-03-01 00:54 | disposition home or self-care (01) ==
LOC: DL.ED 21:58
DX: G89.18 Other acute postprocedural pain (principal); R06.02 Shortness of breath; F17.210 Nicotine dependence, cigarettes, uncomplicated; Z79.899 Other long term (current) drug therapy
CPT/HCPCS: 36415; 70360; 71046; 80053; 84484; 85025; 85379; 93005; 99285-25

== ENCOUNTER 2020-12-31 19:22 | Emergency (ER) | payer OTHER ==
[2020-12-31 19:49] VITALS: BP 142/75; PULSE 78
[2020-12-31] MEDS ORDERED: Sodium Chloride 0.9% 10 ML Syringe FLUSH PRN (20:10)
[2020-12-31] MEDS ORDERED: Iopamidol 612 MG/ML 100 ML Bottle IVPUSH ONE (20:40)
--- NOTE | 2020-12-31 20:42 | EDM.PDOC ---
ED HPI GENERAL MEDICAL PROBLEM - General Chief Complaint: ENT Problem Stated Complaint: THROAT IS CLOSING, TROUBLE BREATHING Time Seen by Provider: 12/31/20 20:00 Source of Information: Reports: Patient History Limitations: Reports: No Limitations - History of Present Illness INITIAL COMMENTS - FREE TEXT/NARRATIVE: Patient comes emergency department today with complaints of difficulty swallowing and chest pain. This patient for the past 10 days has had a intermittent tightening around his neck and intermittent tightness in his chest. It is painful for him to swallow even water. He has not been able to eat much. He has not been able to drink much. He has had no recent trauma injury or procedures. He is worried that it has something to do with his prostate cancer that he had treatment with radiation which was discontinued in September. Up until 10 days ago he had no difficulty with this. He has waxing and waning tightness in his throat and his chest comes and goes on its own. It is difficult for him to breathe at times he reports. He is not short of breath at this time. He has no pain in his chest at this time. He has had no weakness dizziness lightheadedness. No palpitations palpitations syncope. He has had no excessive salivation or drooling. The only surgery he has had in the past in the neck region was when he had tonsillectomy as a child. Throat Pain Score (Numeric/FACES): 2 - Related Data Allergies Allergy/AdvReac Type Severity Reaction Status Date / Time No Known Allergies Allergy Verified 12/31/20 19:49 Home Meds: Home Meds Aspirin [Halfprin] 81 mg PO DAILY 04/02/14 [History] Multivitamin with Minerals [Multiple Vitamin] 1 tab PO DAILY 01/26/16 [History] Ibuprofen 1 tab PO Q6H PRN 08/27/17 [History] Cyclobenzaprine [Flexeril] 5 mg PO BEDTIME 08/01/19 [History] oxyCODONE 5 mg PO Q6HR 08/01/19 [History] Past Medical History - Past Health History Medical/Surgical History: Denies Medical/Surgical History HEENT History: Reports: None Cardiovascular History: Reports: None Respiratory History: Reports: COPD, Sleep Apnea Gastrointestinal History: Reports: None, Colon Polyp Genitourinary History: Reports: None, Prostate Disorder Musculoskeletal History: Reports: Arthritis, Back Pain, Chronic, Fracture, Neck Pain, Chronic, Other (See Below) Other Musculoskeletal History: SHOULDER PAIN D/T INCOMPLETE TEAR OF ROTATOR CUFF Neurological History: Reports: Headaches, Chronic, Other (See Below) Other Neuro History: ENCEPHALOPATHY Psychiatric History: Reports: None Endocrine/Metabolic History: Reports: None Hematologic History: Reports: None Immunologic History: Reports: None Oncologic (Cancer) History: Reports: Prostate Dermatologic History: Reports: None - Infectious Disease History Infectious Disease History: Reports: None - Past Surgical History Head Surgeries/Procedures: Reports: None HEENT Surgical History: Reports: Other (See Below) Other HEENT Surgeries/Procedures: UVULAPALATOPLASTY. SEPTOPLASTY Cardiovascular Surgical History: Reports: Other (See Below) Other Cardiovascular Surgeries/Procedures: CARDIAC CATHETERIZATION GI Surgical History: Reports: Polypectomy Male Surgical History: Reports: Prostatectomy, Other (See Below) Other Male Surgeries/Procedures: BLADDER SHINCTEROTOMY Musculoskeletal Surgical History: Reports: Other (See Below) Other Musculoskeletal Surgeries/Procedures:: ORIF OF FRACTURED RIGHT ANKLE Social & Family History - Family History Family Medical History: No Pertinent Family History - Tobacco Use Tobacco Use Status *Q: Current Every Day Tobacco User Years of Tobacco use: 47 Packs/Tins Daily: 0.5 - Caffeine Use Caffeine Use: Reports: Coffee Other Caffeine Use: lots of coffeetoday6-7 cups - Recreational Drug Use Recreational Drug Use: No ED ROS GENERAL - Review of Systems Review Of Systems: Comprehensive ROS is negative, except as noted in HPI. ED EXAM, GENERAL - Physical Exam Exam: See Below Exam Limited By: No Limitations General Appearance: Alert, WD/WN, No Apparent Distress Eye Exam: Bilateral Eye: EOMI, PERRL Ears: Normal External Exam, Normal Canal, Normal TMs Nose: Normal Inspection, Normal Mucosa, No Blood Throat/Mouth: Normal Lips, Normal Teeth, Normal Gums, Normal Voice, No Airway Compromise. No: Normal Oropharynx (His uvula is absent and his tonsils as well. the posteiror pharynx is white erythematous without exudate. No swelling. No drooling. ) Head: Atraumatic, Normocephalic Neck: Supple, Full Range of Motion. No: Normal Inspection (he has generalized tenderness throughout the anterior neck on palpation. Externally appears normal. ), Lymphadenopathy (L), Lymphadenopathy (R) Respiratory/Chest: No Respiratory Distress, Lungs Clear, Normal Breath Sounds, No Accessory Muscle Use, Chest Non-Tender Cardiovascular: Normal Peripheral Pulses, Regular Rate, Rhythm Peripheral Pulses: 2+: Radial (L), Radial (R), Posterior Tibial (L), Posterior Tibial (R), Dorsalis Pedis (L), Dorsalis Pedis (R) GI/Abdominal: Normal Bowel Sounds, Soft, Non-Tender (Male) Exam: Deferred Rectal (Males) Exam: Deferred, Prostate Nodule Back Exam: Normal Inspection Extremities: Normal Inspection, Normal Range of Motion, No Pedal Edema, Normal Capillary Refill Neurological: Alert, Oriented, CN II-XII Intact, Normal Cognition, No Motor/Sensory Deficits Psychiatric: Normal Affect, Normal Mood Skin Exam: Warm, Dry, Intact, Normal Color, No Rash Lymphatic: No Adenopathy #1 Interpretation EKG Date: 12/31/20 Time: 20:27 Rhythm: NSR Rate (Beats/Min): 67 [place]: Normal P-Wave: Present QRS: Normal ST-T: Normal QT: Normal Comparison: No Change Course - Vital Signs Last Recorded V/S: Last Vital Signs Temp 97.8 F 12/31/20 19:36 Pulse 78 12/31/20 19:36 Resp 19 12/31/20 19:36 BP 142/75 H 12/31/20 19:36 Pulse Ox 100 12/31/20 19:36 - Orders/Labs/Meds Orders: Active Orders 24 hr Category Date Time Status CULTURE STREP A CONFIRMATION [] Stat Lab 12/31/20 21:30 Results STREP SCRN A RAPID W CULT CONF [RM] Stat Lab 12/31/20 21:30 Results Peripheral IV Insertion Adult [OM.PC] Stat Oth 12/31/20 20:09 Ordered Labs: Laboratory Tests 12/31/20 12/31/20 12/31/20 Range/Units 20:25 20:25 20:25 WBC 6.0 (5.0-10.0) 10^3/uL RBC 4.95 (4.6-6.2) 10^6/uL Hgb 15.0 (14.0-18.0) g/dL Hct 43.6 (40.0-54.0) % MCV 88.1 (80-100) fL MCH 30.3 (27.0-34.0) pg MCHC 34.4 (33.0-35.0) g/dL Plt Count 221 D (150-450) 10^3/uL Neut % (Auto) 72.8 (42.2-75.2) % Lymph % (Auto) 14.7 L (20.5-50.1) % Jay % (Auto) 8.0 (2-8) % Eos % (Auto) 3.7 H (1.0-3.0) % Baso % (Auto) 0.8 (0.0-1.0) % PT 10.4 (9.0-12.0) SEC INR 1.0 (0.9-1.2) APTT 27.4 (22.0-34.0) SEC Sodium 145 (136-145) mmol/L Potassium 3.6 (3.5-5.1) mmol/L Chloride 109 H (98-107) mmol/L Carbon Dioxide 25 (21-32) mmol/L Anion Gap 14.6 H (7-13) mEq/L BUN 20 H (7-18) mg/dL Creatinine 1.02 (0.70-1.30) mg/dL Est Cr Clr Drug Dosing 74.85 mL/min Estimated GFR (MDRD) > 60 BUN/Creatinine Ratio 19.6 (No establ ref range) Glucose 90 (70-99) mg/dL Calcium 8.7 (8.5-10.1) mg/dL Total Bilirubin 0.7 (0.2-1.0) mg/dL AST 21 (15-37) U/L ALT 40 (16-63) U/L Alkaline Phosphatase 90 (46-116) U/L Troponin I < 0.017 (0.000-0.056) ng/mL Total Protein 7.2 (6.4-8.2) g/dL Albumin 3.9 (3.4-5.0) g/dL Globulin 3.3 Albumin/Globulin Ratio 1.2 Meds: Medications Discontinued Medications Generic Name Dose Route Start Last Admin Trade Name Freq PRN Reason Stop Dose Admin Al Hydroxide/Mg Hydroxide 30 ml 12/31/20 20:47 12/31/20 21:33 Gi Cocktail Oral Solution 30 Ml PO 12/31/20 20:48 30 ml ONETIME ONE Administration Al Hydroxide/Mg Hydroxide 30 ml 12/31/20 20:47 12/31/20 22:48 Gi Cocktail Oral Solution 30 Ml PO 12/31/20 20:48 Not Given ONETIME ONE Iopamidol 100 ml 12/31/20 20:40 12/31/20 21:34 Iopamidol 612 Mg/Ml 100 Ml Bottle IVPUSH 12/31/20 20:41 100 ml ONETIME ONE Administration Sodium Chloride 10 ml 12/31/20 20:10 12/31/20 20:25 Sodium Chloride 0.9% 10 Ml Syringe FLUSH 10 ml ASDIRECTED PRN Administration Keep Vein Open - Radiology Interpretation Free Text/Narrative:: Chest x-ray per radiology shows no acute findings. Please see complete report CT soft tissue neck with contrast per radiology no acute abnormality within the soft tissue of the neck. No visceral mass focal inflammatory process or abscess identified. Moderate grade degenerative changes within the cervical spine with postoperative change from prior multilevel anterior cervical fusion. No evidence of metastatic disease. Thyroid nodules as listed above - Re-Assessments/Exams Free Text/Narrative Re-Assessment/Exam: 01/01/21 EKG was completed and reviewed extemporaneously by myself without any ST elevation or depression. GI cocktail with improvement of the patient's pain discomfort and much easier to swallow. CBC with a normal WBC at 6.0 hemoglobin 15.0 and a platelet count of 221. CMP chloride 109 anion gap 14.6 and a BUN of 20 with a creatinine of 1.02. Troponin less than 0.017 CT scan of his neck was negative as well as his chest x-ray. His pain in his chest as well as his throat is much improved after the GI cocktail. I am not seeing any other causes for his difficulty swallowing at this time. This might be better served with a EGD or a swallow study. Although he is much improved after the GI cocktail. With the mild irritation in the posterior pharynx I have concern for heartburn and he relates that he has had heartburn quite a bit the last couple of weeks. His symptoms improved with GI cocktail. We will start him on omeprazole as well as Carafate. I like him to follow-up with primary care this week for consideration of an EGD or swallow study. He is comfortable with this plan and his questions are answered. Departure - Departure Time of Disposition: 22:15 Disposition: Home, Self-Care 01 Clinical Impression: Painful swallowing, Non-cardiac chest pain GERD (gastroesophageal reflux disease) Qualifiers: Esophagitis presence: with esophagitis Qualified Code(s): K21.0 - Gastro- esophageal reflux disease with esophagitis Instructions: Nonspecific Chest Pain, Adult, [id number], Gastroesophageal Reflux Disease, Adult, [id number] Referrals: PCP,None [Primary Care Provider] - Forms: ED Department Discharge Additional Instructions: Maalox or Mylanta liquid OTC for acute episode of heartburn pain. Carafate 1 tablet 4 times a day before meals and bedtime. RX given to the patient. Omeprazole 1 tablet daily for 28 days. RX given to the patient. Return to the ED if new or worsening symptoms. Especially if unable to swallow or more SOB. Follow up with PCP in one week. Consider EGD upper scope or swallow study. Sepsis Event Note (ED) - Evaluation Sepsis Screening Result: No Definite Risk - Focused Exam Vital Signs: Vital Signs Temp Pulse Resp BP Pulse Ox 12/31/20 19:36 97.8 F 78 19 142/75 H 100 - My Orders Last 24 Hours: My Active Orders 12/31/20 20:09 Peripheral IV Insertion Adult [OM.PC] Stat 12/31/20 21:30 CULTURE STREP A CONFIRMATION [RM] Stat STREP SCRN A RAPID W CULT CONF [RM] Stat - Assessment/Plan Last 24 Hours: My Active Orders 12/31/20 20:09 Peripheral IV Insertion Adult [OM.PC] Stat 12/31/20 21:30 CULTURE STREP A CONFIRMATION [RM] Stat STREP SCRN A RAPID W CULT CONF [RM] Stat
[2020-12-31] MEDS ORDERED: GI Cocktail Oral Solution 30 ML PO ONE ×2 (20:47)
[2020-12-31 20:53] LABS: PTT,PARTIAL THROMBOPLSTIN TIME 27.4 SEC (22.0-34.0)
[2020-12-31 20:55] LABS: ANION GAP 14.6 mEq/L (7-13); CHLORIDE,CL 109 mmol/L (98-107); SODIUM,NA 145 mmol/L (136-145)
--- NOTE | 2020-12-31 21:48 | CR ---
PROCEDURE INFORMATION: Exam: XR Chest Exam date and time: 12/31/2020 9:11 PM Age: 65 years old Clinical indication: Other: Chest pain; Additional info: Cp SOB TECHNIQUE: Imaging protocol: XR of the chest. Views: 2 views. COMPARISON: CR Chest 2V 02/28/2019 11:36 PM FINDINGS: Lungs: Unremarkable. No consolidation. Pleural spaces: Unremarkable. No pleural effusion. No pneumothorax. Heart/Mediastinum: Unremarkable. No cardiomegaly. Bones/joints: Unremarkable. IMPRESSION: No acute findings.
--- NOTE | 2020-12-31 21:48 | CT ---
PROCEDURE INFORMATION: Exam: CT Neck With Contrast Exam date and time: 12/31/2020 9:24 PM Age: 65 years old Clinical indication: Other: HX prostate CA; Additional info: Difficulty with swallowing and pain. TECHNIQUE: Imaging protocol: Computed tomography images of the neck with contrast. Radiation optimization: All CT scans at this facility use at least one of these dose optimization techniques: automated exposure control; mA and/or kV adjustment per patient size (includes targeted exams where dose is matched to clinical indication); or iterative reconstruction. Contrast material: [id number]; Contrast volume: 75 ml; Contrast route: INTRAVENOUS (IV); COMPARISON: No relevant prior studies available. FINDINGS: Nasopharynx: Unremarkable. Oropharynx: Unremarkable. No significant tonsillar enlargement. Hypopharynx: Unremarkable. Larynx: Unremarkable. Normal epiglottis. Retropharyngeal space: Unremarkable. Submandibular/Parotid glands: Normal. Glands are normal in size. Thyroid: Normal. There appears to be a mostly cystic lesion within the right thyroid lobe measuring approximately 1.5 1.6 cm. More subtle nodule in the left thyroid lobe measures approximately 1.0 cm. Lymph nodes: Unremarkable. No lymphadenopathy. Trachea: Visualized trachea is unremarkable. Lungs: Unremarkable as visualized. Bones/joints: Prior anterior cervical fusion has been performed from C4 through C6. There appears to be good bony incorporation across the fused interspaces. [id number] grade degenerative changes are present within the non fused disc spaces. 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 No acute fractures are identified. C1-C2 relationship is well preserved. No focal lesion identified. Soft tissues: Unremarkable. No significant soft tissue swelling. IMPRESSION: 1. No acute abnormality within the soft tissue neck. No visceral mass, focal inflammatory process or abscess identified. 2. Moderate grade degenerative changes within the cervical spine with postoperative change from prior multilevel anterior cervical fusion. No evidence for metastatic disease. 3. Thyroid nodules as above.
== END 2020-12-31 22:45 | disposition home or self-care (01) ==
LOC: DL.ED 19:22
DX: K21.00 Gastro-esophageal reflux disease with esophagitis, without bleeding (principal); J44.9 Chronic obstructive pulmonary disease, unspecified; M19.90 Unspecified osteoarthritis, unspecified site; Z79.82 Long term (current) use of aspirin; Z72.0 Tobacco use
CPT/HCPCS: 36415; 70491; 71046; 80053; 84484; 85025; 85610; 85730; 87081; 87430; 93005; 93010; 99284; 99285; A9270; Q9967

== ENCOUNTER 2021-01-03 09:59 | Emergency (ER) | payer OTHER ==
[2021-01-03 10:37] VITALS: BP 127/71; PULSE 69
[2021-01-03 10:49] LABS: PTT,PARTIAL THROMBOPLSTIN TIME 28.1 SEC (22.0-34.0)
[2021-01-03 10:52] LABS: ANION GAP 14.5 mEq/L (7-13); CHLORIDE,CL 107 mmol/L (98-107); SODIUM,NA 142 mmol/L (136-145)
[2021-01-03] MEDS ORDERED: GI Cocktail Oral Solution 30 ML PO ONE (11:36)
[2021-01-03 11:53] LABS: CORONAVIRUS COVID-19 NAA NEGATIVE (NEGATIVE)
--- NOTE | 2021-01-03 12:00 | EDM.PDOC ---
ED HPI GENERAL MEDICAL PROBLEM - General Chief Complaint: Chest Pain Stated Complaint: CHEST PAINS Time Seen by Provider: 01/03/21 10:50 Source of Information: Reports: Patient, Old Records, RN, RN Notes Reviewed History Limitations: Reports: No Limitations - History of Present Illness INITIAL COMMENTS - FREE TEXT/NARRATIVE: Jayjay is a 65 y/o male who presents to the ED via personal vehicle with complaints of chest pain and difficulty swallowing. The patient was examined in this ED three days ago, 12/31/20, for similar symptoms was was subsequently diagnosed with GERD; he was discharged with Carafate and Omeprazole course with instructions to follow up with PCP in one week. Today the patient presents at the instruction of the [facility] nurse who told him he needs a cardiac work- up. The patient reports the chest pain is transient in nature and characterizes it as a sharp burning to his midline chest; he denies radiation of this pain. The patient states he has been taking the omeprazole, but has not noticed any drastic improvement in his difficult swallowing. He denies fever, shaking chills, palpitations, cough, drooling, sore throat, throat tightness, palp itations, abdominal pain, nausea, vomiting, or diarrhea. He states he has been able to drink liquids and eat meals, but he feels the solid food moves slowly down his throat; he denies sensation of a current food bolus in his throat. Additionally, the [facility] nurse instructed the patient to have his left great toe assessed as it appeared "infected." He denies any pain, redness, drainage, wounds, or injury to the area; he notes a blackened area that developed shortly after his last round of radiation for prostate cancer. - Related Data Allergies Allergy/AdvReac Type Severity Reaction Status Date / Time No Known Allergies Allergy Verified 01/03/21 10:41 Home Meds: Home Meds Aspirin [Halfprin] 81 mg PO DAILY 04/02/14 [History] Multivitamin with Minerals [Multiple Vitamin] 1 tab PO DAILY 01/26/16 [History] Ibuprofen 1 tab PO Q6H PRN 08/27/17 [History] Cyclobenzaprine [Flexeril] 5 mg PO BEDTIME 08/01/19 [History] oxyCODONE 5 mg PO Q6HR 08/01/19 [History] Past Medical History - Past Health History Medical/Surgical History: Denies Medical/Surgical History HEENT History: Reports: None Cardiovascular History: Reports: None Respiratory History: Reports: COPD, Sleep Apnea Gastrointestinal History: Reports: None, Colon Polyp Genitourinary History: Reports: None, Prostate Disorder Musculoskeletal History: Reports: Arthritis, Back Pain, Chronic, Fracture, Neck Pain, Chronic, Other (See Below) Other Musculoskeletal History: SHOULDER PAIN D/T INCOMPLETE TEAR OF ROTATOR CUFF Neurological History: Reports: Headaches, Chronic, Other (See Below) Other Neuro History: ENCEPHALOPATHY Psychiatric History: Reports: None Endocrine/Metabolic History: Reports: None Hematologic History: Reports: None Immunologic History: Reports: None Oncologic (Cancer) History: Reports: Prostate Dermatologic History: Reports: None - Infectious Disease History Infectious Disease History: Reports: None - Past Surgical History Head Surgeries/Procedures: Reports: None HEENT Surgical History: Reports: Other (See Below) Other HEENT Surgeries/Procedures: UVULAPALATOPLASTY. SEPTOPLASTY Cardiovascular Surgical History: Reports: Other (See Below) Other Cardiovascular Surgeries/Procedures: CARDIAC CATHETERIZATION GI Surgical History: Reports: Polypectomy Male Surgical History: Reports: Prostatectomy, Other (See Below) Other Male Surgeries/Procedures: BLADDER SHINCTEROTOMY Musculoskeletal Surgical History: Reports: Other (See Below) Other Musculoskeletal Surgeries/Procedures:: ORIF OF FRACTURED RIGHT ANKLE Social & Family History - Family History Family Medical History: No Pertinent Family History - Tobacco Use Tobacco Use Status *Q: Current Every Day Tobacco User Years of Tobacco use: 15 Packs/Tins Daily: 0.5 - Caffeine Use Caffeine Use: Reports: Coffee Other Caffeine Use: lots of coffeetoday6-7 cups - Recreational Drug Use Recreational Drug Use: No ED ROS GENERAL - Review of Systems Review Of Systems: Comprehensive ROS is negative, except as noted in HPI. ED EXAM, GENERAL - Physical Exam Exam: See Below Exam Limited By: No Limitations General Appearance: Alert, No Apparent Distress Eye Exam: Bilateral Eye: EOMI, Normal Inspection, PERRL (3mm) Ears: Normal External Exam, Normal Canal, Hearing Grossly Normal, Normal TMs Ear Exam: Bilateral Ear: Auricle Normal, Canal Normal, TM normal Nose: Normal Inspection, Normal Mucosa, No Blood Throat/Mouth: Normal Lips, Normal Voice, No Airway Compromise, Inflammation (Erythema to posterior oropharynx), Other (No drooling or pooling of secretions; No food matter noted) Head: Atraumatic, Normocephalic Neck: Normal Inspection, Supple, Non-Tender, Full Range of Motion Respiratory/Chest: No Respiratory Distress, Lungs Clear, Normal Breath Sounds, No Accessory Muscle Use, Chest Non-Tender, Other (No stridor) Cardiovascular: Normal Peripheral Pulses, Regular Rate, Rhythm, No Edema, No Gallop, No JVD, No Murmur, No Rub Peripheral Pulses: 2+: Radial (L), Radial (R), Dorsalis Pedis (L), Dorsalis Pedis (R) GI/Abdominal: Normal Bowel Sounds, Soft, Non-Tender, No Distention, No Mass, Pelvis Stable (Male) Exam: Deferred Rectal (Males) Exam: Deferred Back Exam: Normal Inspection, Full Range of Motion Extremities: Normal Range of Motion, Non-Tender, No Pedal Edema, Normal Capillary Refill, Other (Darkening to distal nailbed of right great toe) Neurological: Alert, Oriented, CN II-XII Intact, Normal Cognition, Normal Gait, Normal Reflexes, No Motor/Sensory Deficits Psychiatric: Normal Affect, Normal Mood Skin Exam: Warm, Dry, Intact, Normal Color, No Rash Lymphatic: No Adenopathy #1 Interpretation EKG Date: 01/03/21 Time: 10:14 Rhythm: NSR Rate (Beats/Min): 64 [place]: Normal P-Wave: Present QRS: Normal ST-T: Normal QT: Normal NJ/PQ Interval: 0.167 Comparison: No Change EKG Interpretation Comments: NSR; No evidence of acute myocardial ischemia Course - Vital Signs Last Recorded V/S: Last Vital Signs Temp 97.9 F 01/03/21 10:35 Pulse 69 01/03/21 10:35 Resp 20 01/03/21 10:35 BP 127/71 01/03/21 10:35 Pulse Ox 100 01/03/21 10:35 - Orders/Labs/Meds Labs: Laboratory Tests 01/03/21 01/03/21 01/03/21 Range/Units 10:19 10:19 10:19 WBC 6.1 (5.0-10.0) 10^3/uL RBC 5.05 (4.6-6.2) 10^6/uL Hgb 15.2 (14.0-18.0) g/dL Hct 43.8 (40.0-54.0) % MCV 86.7 (80-100) fL MCH 30.1 (27.0-34.0) pg MCHC 34.7 (33.0-35.0) g/dL Plt Count 225 (150-450) 10^3/uL Neut % (Auto) 72.1 (42.2-75.2) % Lymph % (Auto) 14.5 L (20.5-50.1) % [place] % (Auto) 9.3 H (2-8) % Eos % (Auto) 3.6 H (1.0-3.0) % Baso % (Auto) 0.5 (0.0-1.0) % PT 10.4 (9.0-12.0) SEC INR 1.0 (0.9-1.2) APTT 28.1 (22.0-34.0) SEC Sodium 142 (136-145) mmol/L Potassium 3.5 (3.5-5.1) mmol/L Chloride 107 (98-107) mmol/L Carbon Dioxide 24 (21-32) mmol/L Anion Gap 14.5 H (7-13) mEq/L BUN 20 H (7-18) mg/dL Creatinine 0.90 (0.70-1.30) mg/dL Est Cr Clr Drug Dosing 84.83 mL/min Estimated GFR (MDRD) > 60 BUN/Creatinine Ratio 22.2 (No establ ref range) Glucose 93 (70-99) mg/dL Lactic Acid (0.4-2.0) mmol/L Calcium 8.8 (8.5-10.1) mg/dL Magnesium 2.4 (1.8-2.4) mg/dL Total Bilirubin 1.1 H (0.2-1.0) mg/dL AST 24 (15-37) U/L ALT 40 (16-63) U/L Alkaline Phosphatase 77 (46-116) U/L Troponin I < 0.017 (0.000-0.056) ng/mL Total Protein 7.1 (6.4-8.2) g/dL Albumin 3.9 (3.4-5.0) g/dL Globulin 3.2 Albumin/Globulin Ratio 1.2 Ethyl Alcohol < 3 (0) mg/dL Influenza Type A RNA (NEGATIVE) Influenza Type B RNA (NEGATIVE) SARS-CoV-2 RNA (PADMINI) (NEGATIVE) 01/03/21 01/03/21 Range/Units 10:19 10:59 WBC (5.0-10.0) 10^3/uL RBC (4.6-6.2) 10^6/uL Hgb (14.0-18.0) g/dL Hct (40.0-54.0) % MCV (80-100) fL MCH (27.0-34.0) pg MCHC (33.0-35.0) g/dL Plt Count (150-450) 10^3/uL Neut % (Auto) (42.2-75.2) % Lymph % (Auto) (20.5-50.1) % [place] % (Auto) (2-8) % Eos % (Auto) (1.0-3.0) % Baso % (Auto) (0.0-1.0) % PT (9.0-12.0) SEC INR (0.9-1.2) APTT (22.0-34.0) SEC Sodium (136-145) mmol/L Potassium (3.5-5.1) mmol/L Chloride (98-107) mmol/L Carbon Dioxide (21-32) mmol/L Anion Gap (7-13) mEq/L BUN (7-18) mg/dL Creatinine (0.70-1.30) mg/dL Est Cr Clr Drug Dosing mL/min Estimated GFR (MDRD) BUN/Creatinine Ratio (No establ ref range) Glucose (70-99) mg/dL Lactic Acid 1.0 (0.4-2.0) mmol/L Calcium (8.5-10.1) mg/dL Magnesium (1.8-2.4) mg/dL Total Bilirubin (0.2-1.0) mg/dL AST (15-37) U/L ALT (16-63) U/L Alkaline Phosphatase (46-116) U/L Troponin I (0.000-0.056) ng/mL Total Protein (6.4-8.2) g/dL Albumin (3.4-5.0) g/dL Globulin Albumin/Globulin Ratio Ethyl Alcohol (0) mg/dL Influenza Type A RNA Negative (NEGATIVE) Influenza Type B RNA Negative (NEGATIVE) SARS-CoV-2 RNA (PADMINI) Negative (NEGATIVE) Meds: Medications Discontinued Medications Generic Name Dose Route Start Last Admin Trade Name Darrion PRN Reason Stop Dose Admin Al Hydroxide/Mg Hydroxide 30 ml 01/03/21 11:36 01/03/21 11:45 Gi Cocktail Oral Solution 30 Ml PO 01/03/21 11:37 30 ml ONETIME ONE Administration - Re-Assessments/Exams Free Text/Narrative Re-Assessment/Exam: 01/03/21 GI cocktail administered. EKG revealed NSR with no evidence of myocardial ischemia. Troponin WNL. Given normal enzymes and EKG given length of chest pain onset, patient has again r/o cardiac ischemia as cause for chest discomfort. Will not repeat CXR or Neck CT as these were done on 12/31/20 and revealed no acute findings. CBC unremarkable; no evidence of infection or anemia. CMP fairly benign with electrolytes, kidney function, and liver function appropriate. COVID and Influenza negative. Patient verbalized improvement in chest pain following GI cocktail. Sensation of dysphagia improved following GI cocktail, as well. Findings of examination and lab work reviewed with patient and daughter. Patient instructed to follow up with gastroenterology by the end of the week regarding today's visit. Patient instructed to continue on omeprazole and take previously prescribed Carafate, as well. Red flag signs and symptoms which would warrant reevaluation reviewed. Patient and daughter verbalized understanding and agreement with the plan of care. Departure - Departure Time of Disposition: 12:22 Disposition: Home, Self-Care 01 Condition: Good Clinical Impression: GERD with esophagitis Qualifiers: Esophagitis bleeding: without hemorrhage Qualified Code(s): K21.00 - Gastro- esophageal reflux disease with esophagitis, without bleeding Dysphagia Qualifiers: Dysphagia type: unspecified Qualified Code(s): R13.10 - Dysphagia, unspecified Instructions: Food Choices for Gastroesophageal Reflux Disease, Adult, Dysphagia Forms: ED Department Discharge Additional Instructions: 1.) Continue on previously prescribed medications, including Omeprazole, Maalox, and Carafate. 2.) Follow up with gastrointestinal specialist for possible need for EGD. 3.) Drink plenty of water to stay hydrated. 4.) Eat small amounts of soft foods, frequently. 5.) Return to the emergency department with and chest pain that does not resolve with medications, or worsening of symptoms. Sepsis Event Note (ED) - Evaluation Sepsis Screening Result: No Definite Risk
== END 2021-01-03 12:30 | disposition home or self-care (01) ==
LOC: DL.ED 09:59
DX: K21.00 Gastro-esophageal reflux disease with esophagitis, without bleeding (principal); R13.10 Dysphagia, unspecified; Z79.82 Long term (current) use of aspirin; Z72.0 Tobacco use; Z20.822 Contact with and (suspected) exposure to COVID-19
CPT/HCPCS: 0240U; 36415; 80053; 80307; 83605; 83735; 84484; 85025; 85610; 85730; 93005; 93010; 99284; 99285-25; A9270-GY

== ENCOUNTER 2021-01-18 06:20 | Day surgery (SDC) | payer OTHER ==
[~2021-01-18 06:20] MED LIST changes: -Dextrose 5%-0.45% NaCl 1,000 ML IV ONE; -Dextrose 5%-0.45% NaCl 1,000 ML IV SCH; -Midazolam 1 MG/ML 2 ML SDV IV ONE; -Sodium Chloride 0.9% 10 ML Syringe FLUSH PRN; -fentaNYL 100 MCG/2 ML SDV IV ONE
[2021-01-18] MEDS ORDERED: fentaNYL 100 MCG/2 ML SDV IV ONE ×3 (06:21→07:32)
[2021-01-18] MEDS ORDERED: Midazolam 1 MG/ML 2 ML SDV IV ONE ×3 (06:21→07:33)
[2021-01-18] MEDS ORDERED: Dextrose 5%-0.45% NaCl 1,000 ML IV SCH (07:30)
--- NOTE | 2021-01-18 09:53 | OR ---
DATE: 01/18/2021 PROCEDURE: Esophagogastroduodenoscopy and multiple pinch biopsies. INSTRUMENT USED: [id number] Olympus video panendoscope. PREMEDICATIONS: No oral or topical anesthesia used. Fentanyl 100 mcg intravenous, Versed 2 mg intravenous. The procedure was done under pulse oximetry, BP recording, and engine monitor. INDICATION: The patient with persistent odynophagia as well as chest pain unexplained and not responsive to medical measures, on PPI. Esophagogastroduodenoscopy is performed for detection of any active erosive lesions, Hernandez esophagus and/or malignancy also under consideration, H pylori status to be determined, endoscopic hemostasis therapy if needed. DESCRIPTION OF PROCEDURE: The scope was passed with ease. Adequate visualization of the esophagus was made from proximal to distal areas. No upper esophageal lesions identified. No distal esophageal stricture. No uphill or downhill esophageal varices. No Fatmata-Verduzco tear. No evidence of erosive esophagitis by Juab criteria. No esophageal polyp or tumor mass identified. Z-line was seen at around 40 cm distal to the oral verge. No proximal gastric varices noted. Gastric fundus examination by retroflexion showed no polypoid lesions. Prominent venous channels were noted, seizures consistent with diffuse gastric atrophy. Large amount of solid food material was noted limiting visualization of quite a few areas. No gastric ulcer, malignant mass, or vascular ectasia identified. Duodenal bulb showed no ulcer. Visualized second part of the duodenum was unremarkable. Multiple pinch biopsies were taken from the gastric antrum and proximal body and sent for PyloriTek test for H pylori, and if negative in an hour, the tissue is to be sent for histopathology. No bleeding was noted from any of the visualized areas at the completion of examination. Photographs were taken of the duodenal bulb, gastric antrum, fundus, and distal esophagus. IMPRESSION: 1. Gastroparesis. 2. Diffuse gastric atrophy. The patient tolerated the procedure well. [facility] /[id number]
[2021-01-18 10:05] VITALS: BP 120/69; PULSE 69
== END 2021-01-18 09:50 | disposition home or self-care (01) ==
LOC: DL.ENDO 06:20
PROVIDERS: ATTEND Internal Medicine Gastroenterology
DX: K29.40 Chronic atrophic gastritis without bleeding (principal); R13.10 Dysphagia, unspecified; K31.84 Gastroparesis; K31.89 Other diseases of stomach and duodenum; F17.210 Nicotine dependence, cigarettes, uncomplicated; E66.09 Other obesity due to excess calories; G47.30 Sleep apnea, unspecified; Z68.28 Body mass index [BMI] 28.0-28.9, adult
CPT/HCPCS: 87077; J2250; J3010; J7042

== ENCOUNTER 2021-01-21 01:10 | Emergency (ER) | payer OTHER ==
[2021-01-21] MEDS ORDERED: LORazepam 2 MG/ML SDV IVPUSH ONE (01:22)
[2021-01-21 01:47] LABS: ANION GAP 16.4 mEq/L (7-13); CHLORIDE,CL 104 mmol/L (98-107); SODIUM,NA 139 mmol/L (136-145)
--- NOTE | 2021-01-21 02:18 | EDM.PDOC ---
ED HPI GENERAL MEDICAL PROBLEM - General Chief Complaint: Chest Pain Stated Complaint: AMBULANCE Time Seen by Provider: 01/21/21 01:30 Source of Information: Reports: EMS, Family History Limitations: Reports: Altered Mental Status - History of Present Illness INITIAL COMMENTS - FREE TEXT/NARRATIVE: ED via [facility] with report of altered mentation. Initial c/o of chest pain then non verbal , unable to get words out. No fall no loss of consciousness, family reported kind of stiffening and eye twitching . Has had similar episodes in past without cause. Chronic c/o chest pain for past 2 years, , Hx prostate cancer. EMS report last known well at 0015. Daughter here in ED, was not present with patient tonight. at home. 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 no facial droop. Tongue midline curled Speech attempts garbled from EMS cot to bed, partial seizure type activity, eyes rolled back tremors left upper then stiffening. carpal spasm left hand. movements interrupted with light sternal rub, - Related Data Allergies Allergy/AdvReac Type Severity Reaction Status Date / Time No Known Allergies Allergy Verified 01/21/21 01:50 Home Meds: Home Meds Aspirin [Halfprin] 81 mg PO DAILY 04/02/14 [History] Multivitamin with Minerals [Multiple Vitamin] 1 tab PO DAILY 01/26/16 [History] Ascorbic Acid [Vitamin C] 1,000 mg PO DAILY 01/17/21 [History] Cranberry Ext/C/L. Sporogenes [Azo Cranberry] 1 tab PO DAILY 01/17/21 [History] GI Cocktail 5 - 10 ml PO TID PRN 01/17/21 [History] Omeprazole 20 mg PO DAILY 01/17/21 [History] Oxybutynin Chloride [Ditropan Xl] 10 mg PO DAILY 01/17/21 [History] Sucralfate 1 gm PO QID 01/17/21 [History] Past Medical History - Past Health History Medical/Surgical History: Denies Medical/Surgical History HEENT History: Reports: Impaired Vision Cardiovascular History: Reports: None Respiratory History: Reports: None Gastrointestinal History: Reports: None, Colon Polyp Genitourinary History: Reports: None Musculoskeletal History: Reports: Fracture Other Musculoskeletal History: SHOULDER PAIN D/T INCOMPLETE TEAR OF ROTATOR CUFF Neurological History: Reports: None Other Neuro History: ENCEPHALOPATHY Psychiatric History: Reports: None Endocrine/Metabolic History: Reports: None Hematologic History: Reports: None Immunologic History: Reports: None Oncologic (Cancer) History: Reports: Prostate Dermatologic History: Reports: None - Infectious Disease History Infectious Disease History: Reports: None - Past Surgical History Head Surgeries/Procedures: Reports: None HEENT Surgical History: Reports: Adenoidectomy, Tonsillectomy Other HEENT Surgeries/Procedures: UVULAPALATOPLASTY. SEPTOPLASTY Cardiovascular Surgical History: Reports: None Other Cardiovascular Surgeries/Procedures: CARDIAC CATHETERIZATION Respiratory Surgical History: Reports: None GI Surgical History: Reports: None Male Surgical History: Reports: Prostatectomy Other Male Surgeries/Procedures: BLADDER SHINCTEROTOMY Neurological Surgical History: Reports: Lumbar Spine Musculoskeletal Surgical History: Reports: Other (See Below) Other Musculoskeletal Surgeries/Procedures:: back surg, neck surg Social & Family History - Family History Family Medical History: No Pertinent Family History - Tobacco Use Tobacco Use Status *Q: Unknown Ever Used Tobacco - Caffeine Use Caffeine Use: Reports: None Other Caffeine Use: quit 3 weeks ago ED ROS GENERAL - Review of Systems Review Of Systems: Comprehensive ROS is negative, except as noted in HPI. ED EXAM, NEURO - Physical Exam Exam: See Below Exam Limited By: No Limitations General Appearance: Other (stuporus, eyes open ) Eye Exam: Bilateral Eye: Nystagmus Ears: Normal External Exam Nose: Normal Inspection Head Exam: Atraumatic, Normocephalic Neck: Other (stiff) Respiratory/Chest: No Respiratory Distress, Lungs Clear, Other (chest wall tenderness anterior left lateral , facial grimace and clenching with palpation) Cardiovascular: Normal Peripheral Pulses, Regular Rate, Rhythm GI/Abdominal: Normal Bowel Sounds, Soft #1 Interpretation EKG Date: 01/21/21 Time: 01:25 Rhythm: NSR Rate (Beats/Min): 74 [place]: Normal P-Wave: Present QRS: Normal QT: Normal Comparison: No Change Course - Vital Signs Last Recorded V/S: Last Vital Signs Temp 98.8 F 01/21/21 01:49 Pulse 64 01/21/21 02:22 Resp 20 01/21/21 02:22 BP 98/63 01/21/21 02:22 Pulse Ox 96 01/21/21 02:22 - Orders/Labs/Meds Orders: Active Orders 24 hr Category Date Time Status EKG 12 Lead [EKG Documentation Completion] [RC] URGENT Care 01/21/21 01:20 Active Labs: Laboratory Tests 01/21/21 01/21/21 01/21/21 Range/Units 01:20 01:20 01:20 WBC 4.9 L (5.0-10.0) 10^3/uL RBC 5.37 (4.6-6.2) 10^6/uL Hgb 16.2 (14.0-18.0) g/dL Hct 46.6 (40.0-54.0) % MCV 86.8 (80-100) fL MCH 30.2 (27.0-34.0) pg MCHC 34.8 (33.0-35.0) g/dL Plt Count 242 (150-450) 10^3/uL Neut % (Auto) 64.1 (42.2-75.2) % Lymph % (Auto) 21.9 (20.5-50.1) % [place] % (Auto) 11.1 H (2-8) % Eos % (Auto) 2.3 (1.0-3.0) % Baso % (Auto) 0.6 (0.0-1.0) % D-Dimer, Quantitative 267 (0-400) ng/mL Sodium 139 (136-145) mmol/L Potassium 4.4 (3.5-5.1) mmol/L Chloride 104 (98-107) mmol/L Carbon Dioxide 23 (21-32) mmol/L Anion Gap 16.4 H (7-13) mEq/L BUN 17 (7-18) mg/dL Creatinine 0.97 (0.70-1.30) mg/dL Est Cr Clr Drug Dosing TNP Estimated GFR (MDRD) > 60 BUN/Creatinine Ratio 17.5 (No establ ref range) Glucose 103 H (70-99) mg/dL Lactic Acid (0.4-2.0) mmol/L Calcium 8.7 (8.5-10.1) mg/dL Magnesium 2.3 (1.8-2.4) mg/dL Total Bilirubin 1.2 H (0.2-1.0) mg/dL AST 34 (15-37) U/L ALT 45 (16-63) U/L Alkaline Phosphatase 78 (46-116) U/L Troponin I < 0.017 (0.000-0.056) ng/mL C-Reactive Protein 0.4 (0.0-0.9) mg/dL Total Protein 7.3 (6.4-8.2) g/dL Albumin 4.1 (3.4-5.0) g/dL Globulin 3.2 Albumin/Globulin Ratio 1.3 05/14/21 Range/Units 01:20 WBC (5.0-10.0) 10^3/uL RBC (4.6-6.2) 10^6/uL Hgb (14.0-18.0) g/dL Hct (40.0-54.0) % MCV (80-100) fL MCH (27.0-34.0) pg MCHC (33.0-35.0) g/dL Plt Count (150-450) 10^3/uL Neut % (Auto) (42.2-75.2) % Lymph % (Auto) (20.5-50.1) % [place] % (Auto) (2-8) % Eos % (Auto) (1.0-3.0) % Baso % (Auto) (0.0-1.0) % D-Dimer, Quantitative (0-400) ng/mL Sodium (136-145) mmol/L Potassium (3.5-5.1) mmol/L Chloride (98-107) mmol/L Carbon Dioxide (21-32) mmol/L Anion Gap (7-13) mEq/L BUN (7-18) mg/dL Creatinine (0.70-1.30) mg/dL Est Cr Clr Drug Dosing Estimated GFR (MDRD) BUN/Creatinine Ratio (No establ ref range) Glucose (70-99) mg/dL Lactic Acid 2.4 H* (0.4-2.0) mmol/L Calcium (8.5-10.1) mg/dL Magnesium (1.8-2.4) mg/dL Total Bilirubin (0.2-1.0) mg/dL AST (15-37) U/L ALT (16-63) U/L Alkaline Phosphatase (46-116) U/L Troponin I (0.000-0.056) ng/mL C-Reactive Protein (0.0-0.9) mg/dL Total Protein (6.4-8.2) g/dL Albumin (3.4-5.0) g/dL Globulin Albumin/Globulin Ratio Meds: Medications Discontinued Medications Generic Name Dose Route Start Last Admin Trade Name Oliverq PRN Reason Stop Dose Admin Lorazepam 1 mg 01/21/21 01:22 01/21/21 01:33 Lorazepam 2 Mg/Ml Sdv IVPUSH 01/21/21 01:23 1 mg ONETIME ONE Administration - Re-Assessments/Exams Free Text/Narrative Re-Assessment/Exam: 01/21/21 02:[address] Ar Carlson, accepting. Tx [facility]. Departure - Departure Time of Disposition: 02:37 Disposition: DC/Tfer to Acute Hospital 02 Condition: Undetermined Clinical Impression: Chronic chest pain, Seizure, History of prostate cancer Altered mental state Qualifiers: Altered mental status type: disorientation Qualified Code(s): R41.0 - Disorientation, unspecified - Discharge Information Forms: ED Department Discharge Sepsis Event Note (ED) - Evaluation Sepsis Screening Result: No Definite Risk - Focused Exam Vital Signs: Vital Signs Temp Pulse Resp BP Pulse Ox 01/21/21 02:22 64 20 98/63 96 01/21/21 01:49 98.8 F 113 H 20 113/64 98 - My Orders Last 24 Hours: My Active Orders 01/21/21 01:20 EKG 12 Lead [EKG Documentation Completion] [RC] URGENT - Assessment/Plan Last 24 Hours: My Active Orders 01/21/21 01:20 EKG 12 Lead [EKG Documentation Completion] [RC] URGENT
--- NOTE | 2021-01-21 02:18 | CT ---
PROCEDURE INFORMATION: Exam: CT Head Without Contrast Exam date and time: 01/21/2021 1:31 AM Age: 65 years old Clinical indication: Altered mental status/memory loss and speech disturbance; Slurred speech TECHNIQUE: Imaging protocol: Computed tomography of the head without contrast. Radiation optimization: All CT scans at this facility use at least one of these dose optimization techniques: automated exposure control; mA and/or kV adjustment per patient size (includes targeted exams where dose is matched to clinical indication); or iterative reconstruction. Other technique: STROKE PROTOCOL was implemented. COMPARISON: CT Head wo Cont 07/09/2017 8:49 PM FINDINGS: Brain: There is mild diffuse cerebral atrophy. Patchy areas of hypoattenuation are seen in the deep white matter the cerebral hemispheres bilaterally compatible with mild deep white matter microvascular disease. Cerebral ventricles: No ventriculomegaly. Bones/joints: Unremarkable. No acute fracture. Paranasal sinuses: The there is mucosal thickening seen within the frontal, ethmoidal and maxillary sinuses bilaterally. Mastoid air cells: Visualized mastoid air cells are well aerated. Soft tissues: Unremarkable. IMPRESSION: There are no acute intracranial findings. ASSESSMENT: ASPECTS ([place] Stroke Program Early CT Score) is 10.
--- NOTE | 2021-01-21 02:19 | CR ---
PROCEDURE INFORMATION: Exam: XR Chest Exam date and time: 01/21/2021 1:40 AM Age: 65 years old Clinical indication: Pain; Chest pressure; Additional info: Chest pain altered mentation TECHNIQUE: Imaging protocol: XR of the chest. Views: 1 view. COMPARISON: CR Chest 2V 12/31/2020 9:11 PM FINDINGS: Tubes, catheters and devices: EKG leads overlie the chest. Lungs: There is mild prominence and indistinctness of the pulmonary vasculature and increased linear opacities present in the lower hemithoraces, findings that suggest pulmonary edema. Pleural spaces: Unremarkable. No pleural effusion. No pneumothorax. Heart/Mediastinum: Unremarkable. No cardiomegaly. Bones/joints: Status post ACDF of the lower cervical spine. IMPRESSION: Mild prominence and indistinctness of the pulmonary vasculature and bilateral increased linear opacities in the lower hemithoraces, findings suggesting pulmonary edema.
[2021-01-21 02:22] VITALS: BP 98/63; PULSE 64
== END 2021-01-21 02:42 ==
LOC: DL.ED 01:10
DX: G89.29 Other chronic pain (principal); R07.9 Chest pain, unspecified; R56.9 Unspecified convulsions; R41.0 Disorientation, unspecified; Z79.82 Long term (current) use of aspirin; Z85.46 Personal history of malignant neoplasm of prostate
CPT/HCPCS: 36415; 70450; 71045; 80053; 83605; 83735; 84484; 85025; 85379; 86140; 93005; 93010; 96374; 99284; 99285-25; J2060

== ENCOUNTER 2022-01-05 20:07 | Emergency (ER) | payer OTHER ==
[2022-01-05 21:27] LABS: ANION GAP 14.8 mEq/L (7-13); CHLORIDE,CL 104 mmol/L (98-107); SODIUM,NA 140 mmol/L (136-145)
[2022-01-05] MEDS ORDERED: Iopamidol 612 MG/ML 100 ML Bottle IVPUSH ONE (21:34)
[2022-01-06 00:10] VITALS: BP 114/84; PULSE 70
[2022-01-06] MEDS ORDERED: fentaNYL 100 MCG/2 ML SDV IVPUSH ONE (00:40)
[2022-01-06] MEDS ORDERED: Ondansetron 4 MG/2 ML SDV IVPUSH ONE (00:40)
== END 2022-01-06 01:08 ==
LOC: DL.ED 20:07
DX: S06.309A Unspecified focal traumatic brain injury with loss of consciousness of unspecified duration, initial encounter (principal); S60.222A Contusion of left hand, initial encounter; M25.511 Pain in right shoulder; M25.551 Pain in right hip; R94.31 Abnormal electrocardiogram [ECG] [EKG]; Z79.82 Long term (current) use of aspirin; Z72.0 Tobacco use; Z20.822 Contact with and (suspected) exposure to COVID-19; W19.XXXA Unspecified fall, initial encounter
CPT/HCPCS: 36415; 70450; 71260; 72125; 73030-RT; 73130-LT; 73562-RT; 74177; 80053; 80307; 81003; 82550; 84484; 85025; 85610; 99284; 99285-25; Q9967; U0002

== ENCOUNTER 2022-09-12 13:31 | Emergency (ER) | payer MEDICARE ==
[2022-09-12 13:50] VITALS: BP 141/77; PULSE 64
[2022-09-12] MEDS: Ondansetron 4 MG/2 ML SDV IVPUSH ONE (14:28)
[2022-09-12 14:29] LABS: PTT,PARTIAL THROMBOPLSTIN TIME 24.3 SEC (22.0-34.0)
[2022-09-12] MEDS: Sodium Chloride 0.9% 10 ML Syringe FLUSH PRN (14:29)
[2022-09-12] MEDS: GI Cocktail Oral Solution 30 ML PO ONE (14:29)
[2022-09-12 14:33] LABS: ANION GAP 11.6 mEq/L (7-13)
[2022-09-12] MEDS: Ketorolac 30 MG/ML SDV IM ONE (14:53)
[2022-09-12] MEDS: methylPREDNISolone Sodium Succinate 125 MG/2 ML SDV IVPUSH ONE (14:53)
== END 2022-09-12 15:43 | disposition home or self-care (01) ==
LOC: DL.ED 13:31
DX: R09.1 Pleurisy (principal)
CPT/HCPCS: 36415; 71045; 80053; 83735; 84484; 85025; 85610; 85730; 93005; 96372; 96374; 96375; 99285; A9270; J1885; J2405; J2930; J3490

== ENCOUNTER 2023-08-02 23:00 | Emergency (ER) | payer MEDICARE, OTHER ==
[2023-08-02] MEDS ORDERED: Ketorolac 30 MG/ML SDV IVPUSH ONE (23:10)
[2023-08-02] MEDS ORDERED: HYDROmorphone 0.5 MG/0.5 ML Syringe IVPUSH ONE (23:10)
[2023-08-02] MEDS ORDERED: Ondansetron 4 MG/2 ML SDV IVPUSH ONE (23:10)
[2023-08-02] MEDS ORDERED: Sodium Chloride 0.9% 10 ML Syringe FLUSH PRN (23:11)
[2023-08-02 23:36] VITALS: BP 144/94; PULSE 79
[2023-08-03] MEDS ORDERED: Take Home: Acetaminophen/HYDROcodone 325-5 MG, 5 Tab Pack PO ONE (00:12)
== END 2023-08-03 00:48 | disposition home or self-care (01) ==
LOC: DL.ED 23:00
DX: G89.18 Other acute postprocedural pain (principal); Z79.82 Long term (current) use of aspirin; Z79.899 Other long term (current) drug therapy
CPT/HCPCS: 96374; 96375; 99284; A9270; J1170; J1885; J2405; 99283; J3490

== ENCOUNTER 2023-08-22 19:38 | Emergency (ER) | payer MEDICARE, OTHER ==
[2023-08-22] MEDS ORDERED: acetaZOLAMIDE 500 MG Vial IVPUSH ONE (20:47)
[2023-08-22] MEDS ORDERED: Proparacaine 0.5% Ophth Soln 15 ML Bottle EYELF ONE (20:51)
[2023-08-22] MEDS ORDERED: Sodium Chloride 0.9% 10 ML Syringe FLUSH SCH (21:15)
[2023-08-22 21:31] VITALS: BP 150/99; PULSE 90
== END 2023-08-22 21:18 ==
LOC: DL.ED 19:38
DX: H40.212 Acute angle-closure glaucoma, left eye (principal); Z79.82 Long term (current) use of aspirin
CPT/HCPCS: 96374; 99284; 99284-25; J1120; J3490

== ENCOUNTER 2023-12-30 13:56 | Emergency (ER) | payer MEDICARE, OTHER ==
[2023-12-30 15:08] VITALS: BP 139/88; PULSE 65
[2023-12-30 15:17] LABS: BASOPHILS PERCENT AUTO 0.5 % (0.0-1.0); EOSINOPHILS PERCENT AUTO 1.9 % (1.0-3.0); HEMOGLOBIN 13.2 g/dL (14.0-18.0); LYMPHOCYTES PERCENT AUTO 14.1 % (20.5-50.1); MEAN CORPUSCULAR HEMOGLOBIN 30.8 pg (27.0-34.0); MEAN CORPUSCULAR HGB CONC 34.7 g/dL (33.0-35.0); MEAN CORPUSCULAR VOLUME 88.6 fL (80-100); MONOCYTES PERCENT AUTO 8.4 % (2-8); NEUTROPHILS PERCENT AUTO 75.1 % (42.2-75.2); PLATELET COUNT,PLT 222 10^3/uL (150-450); RED BLOOD CELL COUNT 4.29 10^6/uL (4.6-6.2); WHITE BLOOD CELL COUNT,WBC 5.7 10^3/uL (5.0-10.0)
[2023-12-30 15:19] LABS: APPEARANCE,URINE CLOUDY (CLEAR); BILIRUBIN,URINE NEGATIVE (NEGATIVE); COLOR,URINE RED (YELLOW); GLUCOSE,URINE NEGATIVE (NEGATIVE); KETONES,URINE NEGATIVE (NEGATIVE); LEUKOCYTE ESTERASE,URINE NEGATIVE (NEGATIVE); NITRITE,URINE POSITIVE (NEGATIVE); OCCULT BLOOD,URINE LARGE (NEGATIVE); PH,URINE 5.5 (5.0-9.0); PROTEIN,URINE >=300 (NEGATIVE); UROBILINOGEN,URINE 0.2 mg/dL (0.2-1.0)
[2023-12-30 15:27] LABS: EPITHELIAL CELLS,URINE RARE /HPF (NOT SEEN)
[2023-12-30 15:30] LABS: BACTERIA,URINE MANY /HPF (0-FEW/HPF)
[2023-12-30 15:31] LABS: RBC,URINE 50-75 /HPF (0-5); WBC,URINE 0-5 /HPF (0-5/HPF)
[2023-12-30 15:37] LABS: A/G RATIO 1.2; ALBUMIN 3.7 g/dL (3.4-5.0); ANION GAP 16.6 mEq/L (7-13); BILIRUBIN TOTAL 0.9 mg/dL (0.2-1.0); BUN/CREATININE RATIO 14.6 (No establ ref range); CALCIUM 8.5 mg/dL (8.5-10.1); CREATININE 0.89 mg/dL (0.70-1.30); EST CRCL DRUG DOSING (CG) 84.77 mL/min; POTASSIUM,K 3.6 mmol/L (3.5-5.1); PROTEIN TOTAL,TP 6.7 g/dL (6.4-8.2)
[2023-12-30] MEDS: Take Home: Ciprofloxacin HCl 500 MG, 6 Tab Pack PO ONE (17:20)
== END 2023-12-30 17:25 | disposition home or self-care (01) ==
LOC: DL.ED 13:56
DX: N30.01 Acute cystitis with hematuria (principal); Z79.82 Long term (current) use of aspirin; Z79.899 Other long term (current) drug therapy
CPT/HCPCS: 36415; 51702; 80053; 81001; 85025; 87086; 87088; 87186; 99283; 99284; A9270-GY

== ENCOUNTER 2024-01-19 21:47 | Emergency (ER) | payer MEDICARE ==
[2024-01-19 22:42] LABS: BASOPHILS PERCENT AUTO 0.6 % (0.0-1.0); EOSINOPHILS PERCENT AUTO 1.6 % (1.0-3.0); HEMATOCRIT 37.2 % (40.0-54.0); HEMOGLOBIN 12.7 g/dL (14.0-18.0); LYMPHOCYTES PERCENT AUTO 14.3 % (20.5-50.1); MEAN CORPUSCULAR HEMOGLOBIN 30.5 pg (27.0-34.0); MEAN CORPUSCULAR HGB CONC 34.1 g/dL (33.0-35.0); MEAN CORPUSCULAR VOLUME 89.4 fL (80-100); MONOCYTES PERCENT AUTO 7.8 % (2-8); NEUTROPHILS PERCENT AUTO 75.7 % (42.2-75.2); PLATELET COUNT,PLT 322 10^3/uL (150-450); RED BLOOD CELL COUNT 4.16 10^6/uL (4.6-6.2); WHITE BLOOD CELL COUNT,WBC 8.8 10^3/uL (5.0-10.0)
[2024-01-19 22:55] LABS: ANION GAP 19.7 mEq/L (7-13); BLOOD UREA NITROGEN,BUN 14 mg/dL (7-18); CALCIUM 9.1 mg/dL (8.5-10.1); CARBON DIOXIDE,CO2 22 mmol/L (21-32); CHLORIDE,CL 103 mmol/L (98-107); CREATININE 1.01 mg/dL (0.70-1.30); GLUCOSE RANDOM 99 mg/dL (70-99); POTASSIUM,K 3.7 mmol/L (3.5-5.1); SODIUM,NA 141 mmol/L (136-145)
[2024-01-19 22:59] LABS: ESTIMATED GFR 80 mL/min (>=60)
[2024-01-19 23:09] LABS: PROTHROMBIN TIME 9.9 SEC (9.0-12.0); PTT,PARTIAL THROMBOPLSTIN TIME 28.6 SEC (22.0-34.0)
[2024-01-19] MEDS: Lidocaine 2% Jelly 10 ML Urojet MUCMEM ONE (23:15)
[2024-01-19] MEDS: Morphine 4 MG/ML Syringe IVPUSH ONE (23:22)
[2024-01-20] MEDS: Morphine 4 MG/ML Syringe ONE (00:05)
[2024-01-20] MEDS: Lidocaine 2% Jelly 10 ML Urojet ONE (00:06)
[2024-01-20] MEDS: Morphine 4 MG/ML Syringe IVPUSH ONE (00:07)
[2024-01-20 00:40] LABS: BILIRUBIN,URINE NEGATIVE (NEGATIVE); COLOR,URINE DARK YELLOW (YELLOW); GLUCOSE,URINE NEGATIVE (NEGATIVE); KETONES,URINE NEGATIVE (NEGATIVE); LEUKOCYTE ESTERASE,URINE LARGE (NEGATIVE); NITRITE,URINE NEGATIVE (NEGATIVE); OCCULT BLOOD,URINE LARGE (NEGATIVE); PROTEIN,URINE 100 (NEGATIVE); UROBILINOGEN,URINE 0.2 mg/dL (0.2-1.0)
[2024-01-20 00:44] LABS: APPEARANCE,URINE SLIGHTLY CLOUDY (CLEAR)
[2024-01-20 00:57] LABS: RBC,URINE >100 /HPF (0-5)
[2024-01-20 00:58] LABS: BACTERIA,URINE FEW /HPF (0-FEW/HPF); EPITHELIAL CELLS,URINE FEW /HPF (NOT SEEN); MUCUS,URINE OCCASIONAL /LPF (NOT SEEN)
[2024-01-20] MEDS: cefTRIAXone 1 GM Vial IVPUSH ONE (01:10)
[2024-01-20] MEDS: Oxybutynin 5 MG Tab PO ONE ×2 (01:20→07:05)
[2024-01-20] MEDS: HYDROmorphone 0.5 MG/0.5 ML Syringe IVPUSH ONE ×2 (02:19→04:37)
[2024-01-20] MEDS: Iopamidol 612 MG/ML 100 ML Bottle IVPUSH ONE (03:36)
[2024-01-20 04:41] VITALS: BP 135/80; PULSE 82
[2024-01-20] MEDS: HYDROmorphone 0.5 MG/0.5 ML Syringe ONE (04:46)
[2024-01-20] MEDS: Phenazopyridine 95 MG Tab PO ONE (05:44)
[2024-01-20] MEDS: oxyCODONE 5 MG Tab PO ONE (05:45)
[2024-01-20] MEDS ORDERED: Take Home: Acetaminophen/oxyCODONE 325-5 MG, 5 Tab Pack PO ONE (06:31)
[2024-01-20] MEDS ORDERED: Take Home: Phenazopyridine 95 MG Tab, 4 Tab Pack PO ONE (06:32)
== END 2024-01-20 07:25 | disposition home or self-care (01) ==
LOC: DL.ED 21:47
DX: N39.0 Urinary tract infection, site not specified (principal); Z79.82 Long term (current) use of aspirin; Z79.899 Other long term (current) drug therapy
CPT/HCPCS: 36415; 51702; 74177; 80048; 81001; 85025; 85610; 85730; 87086; 96374; 96375; 96376; 99283; 99284; A9270; C1758; J0696; J1170; J2270; Q9967; 87088; 87186

== ENCOUNTER 2024-02-12 21:58 | Emergency (ER) | payer MEDICARE ==
[2024-02-12] MEDS: Lidocaine 2% Jelly 10 ML Urojet ONE (22:10)
[2024-02-12 22:22] LABS: BASOPHILS PERCENT AUTO 0.5 % (0.0-1.0); EOSINOPHILS PERCENT AUTO 0.9 % (1.0-3.0); HEMATOCRIT 26.1 % (40.0-54.0); HEMOGLOBIN 8.8 g/dL (14.0-18.0); LYMPHOCYTES PERCENT AUTO 13.4 % (20.5-50.1); MEAN CORPUSCULAR HEMOGLOBIN 30.2 pg (27.0-34.0); MEAN CORPUSCULAR HGB CONC 33.7 g/dL (33.0-35.0); MEAN CORPUSCULAR VOLUME 89.7 fL (80-100); MONOCYTES PERCENT AUTO 8.9 % (2-8); NEUTROPHILS PERCENT AUTO 76.3 % (42.2-75.2); PLATELET COUNT,PLT 210 10^3/uL (150-450); RED BLOOD CELL COUNT 2.91 10^6/uL (4.6-6.2); WHITE BLOOD CELL COUNT,WBC 8.2 10^3/uL (5.0-10.0)
[2024-02-12 22:24] LABS: APPEARANCE,URINE CLOUDY (CLEAR); BILIRUBIN,URINE NEGATIVE (NEGATIVE); COLOR,URINE RED (YELLOW); GLUCOSE,URINE NEGATIVE (NEGATIVE); KETONES,URINE NEGATIVE (NEGATIVE); LEUKOCYTE ESTERASE,URINE SMALL (NEGATIVE); NITRITE,URINE NEGATIVE (NEGATIVE); OCCULT BLOOD,URINE LARGE (NEGATIVE); PH,URINE 5.5 (5.0-9.0); PROTEIN,URINE >=300 (NEGATIVE); UROBILINOGEN,URINE 0.2 mg/dL (0.2-1.0)
[2024-02-12] MEDS: Morphine 4 MG/ML Syringe IVPUSH ONE (22:25)
[2024-02-12] MEDS: Ondansetron 4 MG/2 ML SDV IVPUSH ONE (22:28)
[2024-02-12] MEDS: Sodium Chloride 0.9% 1,000 ML IV ONE (22:29)
[2024-02-12 22:34] LABS: A/G RATIO 1.3; ANION GAP 20.3 mEq/L (7-13); BILIRUBIN TOTAL 0.8 mg/dL (0.2-1.0); BUN/CREATININE RATIO 14.7 (No establ ref range); CREATININE 1.02 mg/dL (0.70-1.30); EST CRCL DRUG DOSING (CG) 70.75 mL/min; POTASSIUM,K 3.3 mmol/L (3.5-5.1); PROTEIN TOTAL,TP 7.1 g/dL (6.4-8.2)
[2024-02-12 22:35] LABS: RBC,URINE PACKED /HPF (0-5)
[2024-02-12 22:36] LABS: BACTERIA,URINE MODERATE /HPF (0-FEW/HPF); EPITHELIAL CELLS,URINE FEW /HPF (NOT SEEN); MUCUS,URINE FEW /LPF (NOT SEEN); YEAST,URINE FEW /HPF (NOT SEEN)
[2024-02-12 22:37] LABS: HYALINE CASTS,URINE FEW
[2024-02-12 22:39] LABS: LACTIC ACID 3.5 mmol/L (0.4-2.0)
[2024-02-12] MEDS: Ondansetron 4 MG in Sodium Chloride 0.9% 50 ML IV ONE (22:43)
[2024-02-12] MEDS: Iopamidol 612 MG/ML 100 ML Bottle IVPUSH ONE (23:00)
[2024-02-12 23:02] LABS: INR 1.1 (0.9-1.2); PTT,PARTIAL THROMBOPLSTIN TIME 29.5 SEC (22.0-34.0)
[2024-02-12] MEDS: HYDROmorphone 0.5 MG/0.5 ML Syringe IVPUSH ONE (23:09)
[2024-02-13] MEDS: cefTRIAXone 1 GM Vial IVPUSH ONE (00:28)
[2024-02-13 01:04] VITALS: BP 98/68; PULSE 66
[2024-02-13 01:45] LABS: PERCENT FE SATURATION 11.8 % (20.0-50.0)
[2024-02-13] MEDS: Morphine 4 MG/ML Syringe IVPUSH ONE (01:59)
[2024-02-13 02:23] LABS: RETICULOCYTE COUNT PERCENT 1 % (0.5-1.5)
== END 2024-02-13 02:03 ==
LOC: DL.ED 21:58
DX: K92.2 Gastrointestinal hemorrhage, unspecified (principal); N30.90 Cystitis, unspecified without hematuria; D64.9 Anemia, unspecified; Z79.899 Other long term (current) drug therapy
CPT/HCPCS: 36415; 51700; 74177; 80053; 81001; 82272; 83540; 83550; 83605; 83690; 85025; 85045; 85610; 85730; 87086; 96361; 96374; 96375; 96376; 99285; A9270; J0696; J1170; J2270; J2405; J7030; Q9967

== ENCOUNTER 2024-06-13 20:02 | Emergency (ER) | payer MEDICARE, OTHER ==
[2024-06-13 20:20] VITALS: BP 163/104; PULSE 90
[2024-06-13] MEDS: Lidocaine 2% Jelly 10 ML Urojet MUCMEM ONE (20:47)
[2024-06-13 21:05] LABS: APPEARANCE,URINE SLIGHTLY CLOUDY (CLEAR); BILIRUBIN,URINE NEGATIVE (NEGATIVE); COLOR,URINE DARK YELLOW (YELLOW); GLUCOSE,URINE 100 (NEGATIVE); KETONES,URINE NEGATIVE (NEGATIVE); LEUKOCYTE ESTERASE,URINE TRACE (NEGATIVE); NITRITE,URINE POSITIVE (NEGATIVE); OCCULT BLOOD,URINE TRACE-INTACT (NEGATIVE); PH,URINE 5.5 (5.0-9.0); PROTEIN,URINE TRACE (NEGATIVE)
[2024-06-13 21:16] LABS: BACTERIA,URINE FEW /HPF (0-FEW/HPF); EPITHELIAL CELLS,URINE FEW /HPF (NOT SEEN); MUCUS,URINE FEW /LPF (NOT SEEN); WBC,URINE 20-30 /HPF (0-5/HPF)
[2024-06-13] MEDS: cefTRIAXone 1 GM, Lidocaine 1% 2.1 ML IM ONE (21:29)
== END 2024-06-13 22:17 | disposition home or self-care (01) ==
LOC: DL.ED 20:02
DX: N39.0 Urinary tract infection, site not specified (principal); Z79.899 Other long term (current) drug therapy; Z79.82 Long term (current) use of aspirin
CPT/HCPCS: 51702; 81001; 87086; 96372; 99283; A9270; J0696; J3490

== ENCOUNTER 2024-07-19 00:41 | Emergency (ER) | payer MEDICARE, OTHER ==
[2024-07-19] MEDS ORDERED: Sodium Chloride 0.9% 10 ML Syringe FLUSH PRN (00:55)
[2024-07-19] MEDS: HYDROmorphone 1 MG/ML Syringe IVPUSH ONE ×2 (01:07→02:47)
[2024-07-19] MEDS: Ondansetron 4 MG/2 ML SDV IVPUSH ONE (01:08)
[2024-07-19 01:09] LABS: BASOPHILS PERCENT AUTO 0.7 % (0.0-1.0); HEMATOCRIT 38.8 % (40.0-54.0); HEMOGLOBIN 12.9 g/dL (14.0-18.0); LYMPHOCYTES PERCENT AUTO 21.9 % (20.5-50.1); MEAN CORPUSCULAR HEMOGLOBIN 27.9 pg (27.0-34.0); MEAN CORPUSCULAR HGB CONC 33.2 g/dL (33.0-35.0); MONOCYTES PERCENT AUTO 10.4 % (2-8); PLATELET COUNT,PLT 254 10^3/uL (150-450); RED BLOOD CELL COUNT 4.62 10^6/uL (4.6-6.2); WHITE BLOOD CELL COUNT,WBC 5.8 10^3/uL (5.0-10.0)
[2024-07-19 01:38] LABS: APPEARANCE,URINE SLIGHTLY CLOUDY (CLEAR); BILIRUBIN,URINE SMALL (NEGATIVE); COLOR,URINE DARK YELLOW (YELLOW); GLUCOSE,URINE 100 (NEGATIVE); KETONES,URINE TRACE (NEGATIVE); LEUKOCYTE ESTERASE,URINE LARGE (NEGATIVE); NITRITE,URINE POSITIVE (NEGATIVE); OCCULT BLOOD,URINE LARGE (NEGATIVE); PROTEIN,URINE >=300 (NEGATIVE)
[2024-07-19 01:39] LABS: AMPHETAMINES,URINE NEGATIVE (NEGATIVE); BARBITURATES,URINE NEGATIVE (NEGATIVE); BENZODIAZEPINE,URINE NEGATIVE (NEGATIVE); MDMA (ECSTASY), URINE NEGATIVE (NEGATIVE); METHADONE,URINE NEGATIVE (NEGATIVE); METHAMPHETAMINES,URINE NEGATIVE (NEGATIVE); OPIATES,URINE NEGATIVE (NEGATIVE); OXYCODONE,URINE NEGATIVE (NEGATIVE); PHENCYCLIDINE,URINE NEGATIVE (NEGATIVE); TCA,URINE NEGATIVE (NEGATIVE)
[2024-07-19 01:42] LABS: A/G RATIO 1.3; ALANINE AMINOTRANSFERASE,ALT 22 U/L (16-63); ALBUMIN 3.9 g/dL (3.4-5.0); ALKALINE PHOSPHATASE 103 U/L (46-116); ANION GAP 11.9 mEq/L (7-13); ASPARTATE AMNIOTRANSFERASE,AST 15 U/L (15-37); BILIRUBIN TOTAL 0.6 mg/dL (0.2-1.0); BLOOD UREA NITROGEN,BUN 23 mg/dL (7-18); BUN/CREATININE RATIO 21.5 (No establ ref range); CALCIUM 9.1 mg/dL (8.5-10.1); CARBON DIOXIDE,CO2 20 mmol/L (21-32); CHLORIDE,CL 102 mmol/L (98-107); CREATININE 1.07 mg/dL (0.70-1.30); EST CRCL DRUG DOSING (CG) 67.44 mL/min; GLUCOSE RANDOM 104 mg/dL (70-99); MAGNESIUM 1.5 mg/dL (1.8-2.4); POTASSIUM,K 2.9 mmol/L (3.5-5.1); PROTEIN TOTAL,TP 6.9 g/dL (6.4-8.2); SODIUM,NA 131 mmol/L (136-145)
[2024-07-19 01:43] LABS: ESTIMATED GFR 74 mL/min (>=60); ETHANOL BLOOD MEDICAL < 3 mg/dL (0)
[2024-07-19 01:45] LABS: PROTHROMBIN TIME 9.9 SEC (9.0-12.0)
[2024-07-19 01:50] LABS: BACTERIA,URINE MODERATE /HPF (0-FEW/HPF); EPITHELIAL CELLS,URINE FEW /HPF (NOT SEEN); RBC,URINE >100 /HPF (0-5); WBC,URINE 20-30 /HPF (0-5/HPF)
[2024-07-19] MEDS: Potassium Chloride 10 MEQ Tab.ER PO ONE (01:57)
[2024-07-19] MEDS: Magnesium Sulfate/Water Premix 2 GM in Premix Bag 1 BAG IV ONE (01:57)
[2024-07-19] MEDS: Ciprofloxacin 500 MG Tab PO ONE (02:28)
[2024-07-19 03:48] VITALS: BP 115/75; PULSE 74
[2024-07-19] MEDS: Take Home: Ciprofloxacin HCl 500 MG, 6 Tab Pack PO ONE (14:47)
== END 2024-07-19 03:42 | disposition home or self-care (01) ==
LOC: DL.ED 00:41
DX: N30.01 Acute cystitis with hematuria (principal); N30.21 Other chronic cystitis with hematuria; N32.0 Bladder-neck obstruction; E83.42 Hypomagnesemia; E87.6 Hypokalemia; Z85.46 Personal history of malignant neoplasm of prostate; Z90.79 Acquired absence of other genital organ(s); Z90.89 Acquired absence of other organs; Z87.891 Personal history of nicotine dependence; Z79.82 Long term (current) use of aspirin; Z79.899 Other long term (current) drug therapy
CPT/HCPCS: 36415; 51702; 80053; 80305; 80307; 81001; 83735; 84484; 85025; 85610; 85730; 87040; 87086; 87088; 87186; 93005; 94762; 96365; 96375; 96376; 99285; A9270; J1171; J2405; J3475; 93010; 99284

== ENCOUNTER 2024-08-06 15:04 | Inpatient (IN) | payer MEDICARE, OTHER ==
[2024-08-06] MEDS: Iopamidol 612 MG/ML 100 ML Bottle IVPUSH ONE (15:20)
[2024-08-06] MEDS: Ondansetron 4 MG/2 ML SDV IVPUSH ONE (15:22)
[2024-08-06] MEDS: Morphine 4 MG/ML Syringe IVPUSH ONE ×2 (15:22→17:55)
[2024-08-06 15:43] LABS: BASOPHILS PERCENT AUTO 0.8 % (0.0-1.0); EOSINOPHILS PERCENT AUTO 2.1 % (1.0-3.0); HEMATOCRIT 37.2 % (40.0-54.0); HEMOGLOBIN 12.4 g/dL (14.0-18.0); LYMPHOCYTES PERCENT AUTO 19.1 % (20.5-50.1); MEAN CORPUSCULAR HEMOGLOBIN 28.1 pg (27.0-34.0); MEAN CORPUSCULAR HGB CONC 33.3 g/dL (33.0-35.0); MEAN CORPUSCULAR VOLUME 84.2 fL (80-100); MONOCYTES PERCENT AUTO 9.6 % (2-8); NEUTROPHILS PERCENT AUTO 68.4 % (42.2-75.2); PLATELET COUNT,PLT 307 10^3/uL (150-450); RED BLOOD CELL COUNT 4.42 10^6/uL (4.6-6.2); WHITE BLOOD CELL COUNT,WBC 6.7 10^3/uL (5.0-10.0)
[2024-08-06 15:47] LABS: APPEARANCE,URINE SLIGHTLY CLOUDY (CLEAR); BILIRUBIN,URINE SMALL (NEGATIVE); GLUCOSE,URINE 100 (NEGATIVE); KETONES,URINE NEGATIVE (NEGATIVE); LEUKOCYTE ESTERASE,URINE LARGE (NEGATIVE); NITRITE,URINE POSITIVE (NEGATIVE); OCCULT BLOOD,URINE LARGE (NEGATIVE); PROTEIN,URINE >=300 (NEGATIVE)
[2024-08-06 15:50] LABS: COLOR,URINE ORANGE (YELLOW)
[2024-08-06 15:55] LABS: AMORPHOUS SEDIMENT,URINE MODERATE /HPF (NOT SEEN); BACTERIA,URINE MODERATE /HPF (0-FEW/HPF); EPITHELIAL CELLS,URINE RARE /HPF (NOT SEEN); MUCUS,URINE MODERATE /LPF (NOT SEEN); RBC,URINE PACKED /HPF (0-5); WBC,URINE 20-30 /HPF (0-5/HPF)
[2024-08-06 16:04] LABS: A/G RATIO 1.2; ALBUMIN 3.8 g/dL (3.4-5.0); ANION GAP 16.3 mEq/L (7-13); BILIRUBIN TOTAL 0.8 mg/dL (0.2-1.0); BUN/CREATININE RATIO 18.5 (No establ ref range); CALCIUM 9.1 mg/dL (8.5-10.1); CREATININE 1.08 mg/dL (0.70-1.30); EST CRCL DRUG DOSING (CG) 66.82 mL/min; POTASSIUM,K 3.3 mmol/L (3.5-5.1); PROTEIN TOTAL,TP 7.1 g/dL (6.4-8.2)
[2024-08-06] MEDS: cefTRIAXone 1 GM Vial IVPUSH ONE (16:53)
[2024-08-06] MEDS: Sodium Chloride 0.9% 1,000 ML IV ONE (17:55)
[2024-08-06] MEDS ORDERED: Albuterol/Ipratropium 3.0-0.5 MG/3 ML Neb Soln NEB PRN (18:19)
[2024-08-06] MEDS ORDERED: Magnesium Hydroxide 400 MG/5 ML Susp 30 ML Cup PO PRN (18:19)
[2024-08-06] MEDS ORDERED: Polyethylene Glycol 3350 Powder 17 GM Packet PO PRN (18:19)
[2024-08-06] MEDS ORDERED: Ondansetron 4 MG/2 ML SDV IVPUSH PRN (18:19)
[2024-08-06] MEDS ORDERED: Acetaminophen 325 MG Tab PO PRN (18:19)
[2024-08-06] MEDS ORDERED: Naloxone 2 MG/2 ML Syringe IVPUSH PRN (18:23)
[2024-08-06] MEDS ORDERED: hydrALAZINE 20 MG/ML SDV IVPUSH PRN (18:25)
[2024-08-06] MEDS ORDERED: Metoprolol Tartrate 5 MG/5 ML SDV IVPUSH PRN (18:25)
[2024-08-06] MEDS: Sodium Chloride 0.9% 1,000 ML IV SCH (18:45)
[2024-08-06] MEDS: fentaNYL 100 MCG/2 ML SDV IVPUSH ONE (19:03)
[2024-08-06] MEDS: Oxybutynin 5 MG Tab PO ONE (19:04)
[2024-08-06] MEDS: Ampicillin/Sulbactam Na 1.5 GM in Sodium Chloride 0.9% 100 ML IV ONE ×2 (20:33→20:37)
[2024-08-06] MEDS: Phenazopyridine 95 MG Tab PO ONE ×2 (20:37→20:38)
[2024-08-06] MEDS: Saccharomyces Boulardii (Probiotic) 250 MG Cap PO SCH (20:38)
[2024-08-06] MEDS: Temazepam 15 MG Cap PO ONE (20:38)
[2024-08-06] MEDS: fentaNYL 25 MCG/HR Transdermal Patch TRDERM ONE (20:39)
[2024-08-07] MEDS ORDERED: Ampicillin/Sulbactam Na 1.5 GM in Sodium Chloride 0.9% 100 ML IV SCH
[2024-08-07] MEDS: Ampicillin/Sulbactam Na 1.5 GM in Sodium Chloride 0.9% 100 ML IV SCH (01:54)
[2024-08-07 06:17] LABS: BASOPHILS PERCENT AUTO 0.6 % (0.0-1.0); EOSINOPHILS PERCENT AUTO 3.4 % (1.0-3.0); HEMATOCRIT 31.1 % (40.0-54.0); HEMOGLOBIN 10.2 g/dL (14.0-18.0); LYMPHOCYTES PERCENT AUTO 16.5 % (20.5-50.1); MEAN CORPUSCULAR HEMOGLOBIN 28.3 pg (27.0-34.0); MEAN CORPUSCULAR HGB CONC 32.8 g/dL (33.0-35.0); MEAN CORPUSCULAR VOLUME 86.1 fL (80-100); NEUTROPHILS PERCENT AUTO 68.5 % (42.2-75.2); PLATELET COUNT,PLT 250 10^3/uL (150-450); RED BLOOD CELL COUNT 3.61 10^6/uL (4.6-6.2); WHITE BLOOD CELL COUNT,WBC 6.2 10^3/uL (5.0-10.0)
[2024-08-07 06:42] LABS: ALANINE AMINOTRANSFERASE,ALT 19 U/L (16-63); ALBUMIN 2.7 g/dL (3.4-5.0); ALKALINE PHOSPHATASE 69 U/L (46-116); ANION GAP 12.9 mEq/L (7-13); ASPARTATE AMNIOTRANSFERASE,AST 11 U/L (15-37); BILIRUBIN TOTAL 0.5 mg/dL (0.2-1.0); BLOOD UREA NITROGEN,BUN 16 mg/dL (7-18); CALCIUM 7.5 mg/dL (8.5-10.1); CARBON DIOXIDE,CO2 23 mmol/L (21-32); CHLORIDE,CL 112 mmol/L (98-107); EST CRCL DRUG DOSING (CG) 72.16 mL/min; GLUCOSE RANDOM 84 mg/dL (70-99); MAGNESIUM 1.8 mg/dL (1.8-2.4); POTASSIUM,K 3.9 mmol/L (3.5-5.1); PROTEIN TOTAL,TP 5.3 g/dL (6.4-8.2); SODIUM,NA 144 mmol/L (136-145)
[2024-08-07 06:44] LABS: A/G RATIO 1.04; C-REACTIVE PROTEIN < 0.50 ng/dL (<=0.50); ESTIMATED GFR 80 mL/min (>=60)
[2024-08-07] MEDS: Phenazopyridine 95 MG Tab PO SCH (09:07)
[2024-08-07] MEDS: Potassium Chloride 10 MEQ Tab.ER PO SCH (09:07)
[2024-08-07] MEDS: Midodrine 5 MG Tab PO ONE (09:17)
[2024-08-07] MEDS: Lactulose Soln 10 GM/15 ML 30 ML UD Cup PO PRN (09:17)
[2024-08-07] MEDS: Bisacodyl 10 MG Supp RECTAL PRN (09:17)
[2024-08-07] MEDS: oxyCODONE 5 MG Tab PO PRN (13:13)
[2024-08-07] MEDS: Oxybutynin 5 MG Tab.ER PO SCH (20:55)
[2024-08-07] MEDS: Midodrine 5 MG Tab PO PRN (20:56)
[2024-08-08] MEDS: Simethicone 80 MG Tab.Chew PO PRN (01:51)
[2024-08-08] MEDS: Midodrine 5 MG Tab PO SCH (05:32)
[2024-08-08] MEDS: Pantoprazole 40 MG Tab.CR PO SCH (05:33)
[2024-08-08 06:35] LABS: BASOPHILS PERCENT AUTO 0.4 % (0.0-1.0); EOSINOPHILS PERCENT AUTO 3.9 % (1.0-3.0); HEMOGLOBIN 11.1 g/dL (14.0-18.0); LYMPHOCYTES PERCENT AUTO 20.1 % (20.5-50.1); MEAN CORPUSCULAR HEMOGLOBIN 28.2 pg (27.0-34.0); MEAN CORPUSCULAR HGB CONC 32.6 g/dL (33.0-35.0); MEAN CORPUSCULAR VOLUME 86.3 fL (80-100); MONOCYTES PERCENT AUTO 11.3 % (2-8); NEUTROPHILS PERCENT AUTO 64.3 % (42.2-75.2); PLATELET COUNT,PLT 263 10^3/uL (150-450); RED BLOOD CELL COUNT 3.94 10^6/uL (4.6-6.2); WHITE BLOOD CELL COUNT,WBC 5.6 10^3/uL (5.0-10.0)
[2024-08-08 07:05] LABS: ALBUMIN 3.1 g/dL (3.4-5.0); BILIRUBIN TOTAL 0.9 mg/dL (0.2-1.0); C-REACTIVE PROTEIN 1.44 ng/dL (<=0.50); CALCIUM 8.4 mg/dL (8.5-10.1); CREATININE 0.92 mg/dL (0.70-1.30); EST CRCL DRUG DOSING (CG) 78.44 mL/min; PROTEIN TOTAL,TP 6.1 g/dL (6.4-8.2)
[2024-08-08 07:07] LABS: A/G RATIO 1.03
[2024-08-08] MEDS: Cyclobenzaprine 10 MG Tab PO ONE (09:59)
[2024-08-08] MEDS: Gabapentin 100 MG Cap PO ONE (09:59)
[2024-08-08] MEDS ORDERED: Cyclobenzaprine 10 MG Tab PO PRN (14:00)
[2024-08-08] MEDS ORDERED: Acetaminophen/HYDROcodone 325-5 MG Tab PO PRN (18:35)
[2024-08-08] MEDS: Gabapentin 100 MG Cap PO SCH (20:58)
[2024-08-09] MEDS: Sodium Chloride 0.9% 10 ML Syringe FLUSH PRN (02:16)
[2024-08-09 07:05] LABS: BASOPHILS PERCENT AUTO 0.5 % (0.0-1.0); EOSINOPHILS PERCENT AUTO 3.4 % (1.0-3.0); HEMATOCRIT 34.3 % (40.0-54.0); HEMOGLOBIN 11.3 g/dL (14.0-18.0); MEAN CORPUSCULAR HEMOGLOBIN 28.3 pg (27.0-34.0); MEAN CORPUSCULAR HGB CONC 32.9 g/dL (33.0-35.0); MEAN CORPUSCULAR VOLUME 85.8 fL (80-100); MONOCYTES PERCENT AUTO 9.2 % (2-8); NEUTROPHILS PERCENT AUTO 72.9 % (42.2-75.2); PLATELET COUNT,PLT 214 10^3/uL (150-450); WHITE BLOOD CELL COUNT,WBC 7.6 10^3/uL (5.0-10.0)
[2024-08-09] MEDS: Cyclobenzaprine 10 MG Tab PO PRN (07:11)
[2024-08-09 07:24] LABS: ALBUMIN 2.8 g/dL (3.4-5.0); ANION GAP 16.3 mEq/L (7-13); BILIRUBIN TOTAL 0.9 mg/dL (0.2-1.0); BUN/CREATININE RATIO 11.7 (No establ ref range); C-REACTIVE PROTEIN 1.2 ng/dL (<=0.50); CALCIUM 8.1 mg/dL (8.5-10.1); CREATININE 0.94 mg/dL (0.70-1.30); EST CRCL DRUG DOSING (CG) 76.77 mL/min; MAGNESIUM 1.9 mg/dL (1.8-2.4); POTASSIUM,K 4.3 mmol/L (3.5-5.1); PROTEIN TOTAL,TP 5.6 g/dL (6.4-8.2)
[2024-08-09] MEDS: Bisacodyl 5 MG Tab PO PRN (09:09)
[2024-08-09] MEDS: fentaNYL 50 MCG/HR Transdermal Patch TRDERM ONE (13:15)
[2024-08-10 07:06] LABS: BASOPHILS PERCENT AUTO 0.4 % (0.0-1.0); EOSINOPHILS PERCENT AUTO 4.8 % (1.0-3.0); HEMOGLOBIN 11.5 g/dL (14.0-18.0); MEAN CORPUSCULAR HEMOGLOBIN 28.2 pg (27.0-34.0); MEAN CORPUSCULAR HGB CONC 31.9 g/dL (33.0-35.0); MEAN CORPUSCULAR VOLUME 88.2 fL (80-100); MONOCYTES PERCENT AUTO 12.4 % (2-8); NEUTROPHILS PERCENT AUTO 61.4 % (42.2-75.2); PLATELET COUNT,PLT 275 10^3/uL (150-450); RED BLOOD CELL COUNT 4.08 10^6/uL (4.6-6.2); WHITE BLOOD CELL COUNT,WBC 5.2 10^3/uL (5.0-10.0)
[2024-08-10 07:32] LABS: ALBUMIN 3.1 g/dL (3.4-5.0); ANION GAP 12.8 mEq/L (7-13); BILIRUBIN TOTAL 0.5 mg/dL (0.2-1.0); BUN/CREATININE RATIO 12.4 (No establ ref range); C-REACTIVE PROTEIN 1.01 ng/dL (<=0.50); CALCIUM 8.3 mg/dL (8.5-10.1); CREATININE 0.97 mg/dL (0.70-1.30); EST CRCL DRUG DOSING (CG) 74.39 mL/min; MAGNESIUM 1.9 mg/dL (1.8-2.4); POTASSIUM,K 3.8 mmol/L (3.5-5.1); PROTEIN TOTAL,TP 6.4 g/dL (6.4-8.2)
[2024-08-10 07:51] LABS: A/G RATIO 0.94
[2024-08-10] MEDS: Sennosides/Docusate Sodium 50-8.6 MG Tab PO PRN (20:05)
[2024-08-10] MEDS: Melatonin 3 MG Tab PO PRN (20:23)
[2024-08-11 12:05] VITALS: BP 109/63; PULSE 56
[2024-08-11] MEDS: Ciprofloxacin 500 MG Tab PO ONE (12:09)
[2024-08-11] MEDS: fentaNYL 12 MCG/HR Transdermal Patch TRDERM SCH (12:09)
[2024-08-11] MEDS ORDERED: Check FENTANYL Patch TRDERM SCH (21:00)
== END 2024-08-11 12:45 | disposition home or self-care (01) | DRG 700 ==
LOC: DL.ED 15:04 → DL.MS 17:44 → OBSVTOIN 08-08 09:28
PROVIDERS: ADMIT Internal Medicine; ATTEND Internal Medicine
DX: N30.01 Acute cystitis with hematuria (principal); N32.89 Other specified disorders of bladder; Z79.82 Long term (current) use of aspirin; Z79.899 Other long term (current) drug therapy; T83.511A Infection and inflammatory reaction due to indwelling urethral catheter, initial encounter; N30.80 Other cystitis without hematuria; E87.6 Hypokalemia; I95.2 Hypotension due to drugs; R53.1 Weakness; Z66 Do not resuscitate; F17.210 Nicotine dependence, cigarettes, uncomplicated; K59.00 Constipation, unspecified; Z85.46 Personal history of malignant neoplasm of prostate; Z90.79 Acquired absence of other genital organ(s); Z86.0100 Personal history of colon polyps, unspecified; T40.605A Adverse effect of unspecified narcotics, initial encounter; Y84.6 Urinary catheterization as the cause of abnormal reaction of the patient, or of later complication, without mention of misadventure at the time of the procedure; Y92.89 Other specified places as the place of occurrence of the external cause
CPT/HCPCS: 36415; 51700; 74177; 80053; 81001; 83605; 83690; 83735; 85025; 86140; 87086; 96361; 96365; 96366; 96374; 96375; 96376; 99223; 99232; 99238; 99284; 99285-25; A9270-GY; G0378; J0295; J0696; J2270; J2405; J3010; J3490; J7030; Q9967

== ENCOUNTER 2024-08-26 03:13 | Inpatient (IN) | payer MEDICARE, OTHER ==
[2024-08-26] MEDS: Ondansetron 4 MG/2 ML SDV IVPUSH ONE (03:21)
[2024-08-26] MEDS: HYDROmorphone 0.5 MG/0.5 ML Syringe IVPUSH ONE (03:21)
[2024-08-26 03:31] LABS: BASOPHILS PERCENT AUTO 0.4 % (0.0-1.0); EOSINOPHILS PERCENT AUTO 0.5 % (1.0-3.0); HEMATOCRIT 40.5 % (40.0-54.0); HEMOGLOBIN 13.6 g/dL (14.0-18.0); MEAN CORPUSCULAR HEMOGLOBIN 27.9 pg (27.0-34.0); MEAN CORPUSCULAR HGB CONC 33.6 g/dL (33.0-35.0); MONOCYTES PERCENT AUTO 9.4 % (2-8); NEUTROPHILS PERCENT AUTO 77.7 % (42.2-75.2); PLATELET COUNT,PLT 404 10^3/uL (150-450); RED BLOOD CELL COUNT 4.88 10^6/uL (4.6-6.2); WHITE BLOOD CELL COUNT,WBC 11.8 10^3/uL (5.0-10.0)
[2024-08-26] MEDS: HYDROmorphone 0.5 MG/0.5 ML Syringe ONE (03:38)
[2024-08-26 03:49] LABS: ANION GAP 21.5 mEq/L (7-13); BUN/CREATININE RATIO 12.7 (No establ ref range); CALCIUM 9.9 mg/dL (8.5-10.1); CREATININE 1.42 mg/dL (0.70-1.30); EST CRCL DRUG DOSING (CG) 52.37 mL/min; MAGNESIUM 2.3 mg/dL (1.8-2.4); POTASSIUM,K 3.5 mmol/L (3.5-5.1); PROTEIN TOTAL,TP 7.9 g/dL (6.4-8.2)
[2024-08-26 03:53] LABS: LACTIC ACID 5.6 mmol/L (0.4-2.0)
[2024-08-26 03:54] LABS: APPEARANCE,URINE SLIGHTLY CLOUDY (CLEAR); BILIRUBIN,URINE NEGATIVE (NEGATIVE); COLOR,URINE AMBER (YELLOW); GLUCOSE,URINE NEGATIVE (NEGATIVE); KETONES,URINE NEGATIVE (NEGATIVE); LEUKOCYTE ESTERASE,URINE LARGE (NEGATIVE); NITRITE,URINE POSITIVE (NEGATIVE); OCCULT BLOOD,URINE LARGE (NEGATIVE); PH,URINE 7.5 (5.0-9.0); PROTEIN,URINE 100 (NEGATIVE); UROBILINOGEN,URINE 0.2 mg/dL (0.2-1.0)
[2024-08-26 04:07] LABS: BACTERIA,URINE MANY /HPF (0-FEW/HPF); EPITHELIAL CELLS,URINE FEW /HPF (NOT SEEN); RBC,URINE >100 /HPF (0-5); WBC,URINE >100 /HPF (0-5/HPF)
[2024-08-26] MEDS: Sodium Chloride 0.9% 1,000 ML IV ONE ×3 (04:28→09:56)
[2024-08-26] MEDS: LORazepam 2 MG/ML SDV IVPUSH ONE (04:37)
[2024-08-26] MEDS: cefTRIAXone 1 GM Vial IVPUSH ONE (05:37)
[2024-08-26] MEDS ORDERED: Acetaminophen 325 MG Tab PO PRN (08:54)
[2024-08-26] MEDS ORDERED: Albuterol/Ipratropium 3.0-0.5 MG/3 ML Neb Soln NEB PRN (08:54)
[2024-08-26] MEDS ORDERED: Naloxone 2 MG/2 ML Syringe IVPUSH PRN (08:54)
[2024-08-26] MEDS ORDERED: Ondansetron 4 MG Tab.DIS PO PRN (08:54)
[2024-08-26] MEDS: cefTRIAXone 1 GM Vial IVPUSH SCH (09:56)
[2024-08-26] MEDS: Sodium Chloride 0.9% 1,000 ML IV SCH (09:58)
[2024-08-26] MEDS: Iopamidol 612 MG/ML 100 ML Bottle IVPUSH ONE (12:14)
[2024-08-27] MEDS: Phenazopyridine 95 MG Tab PO PRN (05:06)
[2024-08-27 06:17] LABS: BASOPHILS PERCENT AUTO 0.7 % (0.0-1.0); EOSINOPHILS PERCENT AUTO 3.5 % (1.0-3.0); HEMOGLOBIN 10.4 g/dL (14.0-18.0); LYMPHOCYTES PERCENT AUTO 20.3 % (20.5-50.1); MEAN CORPUSCULAR HEMOGLOBIN 27.7 pg (27.0-34.0); MEAN CORPUSCULAR HGB CONC 32.5 g/dL (33.0-35.0); MEAN CORPUSCULAR VOLUME 85.1 fL (80-100); MONOCYTES PERCENT AUTO 9.2 % (2-8); NEUTROPHILS PERCENT AUTO 66.3 % (42.2-75.2); PLATELET COUNT,PLT 296 10^3/uL (150-450); RED BLOOD CELL COUNT 3.76 10^6/uL (4.6-6.2); WHITE BLOOD CELL COUNT,WBC 6.1 10^3/uL (5.0-10.0)
[2024-08-27 06:31] LABS: ANION GAP 13.9 mEq/L (7-13); CALCIUM 8.1 mg/dL (8.5-10.1); CREATININE 0.81 mg/dL (0.70-1.30); EST CRCL DRUG DOSING (CG) 89.09 mL/min; POTASSIUM,K 3.9 mmol/L (3.5-5.1)
[2024-08-27] MEDS: Iopamidol 612 MG/ML 100 ML Bottle IVPUSH ONE (08:41)
[2024-08-27] MEDS: Docusate Sodium 100 MG Cap PO PRN (15:26)
[2024-08-27] MEDS: oxyCODONE 5 MG Tab PO PRN (20:24)
[2024-08-28] MEDS ORDERED: Bisacodyl 10 MG Supp RECTAL PRN (09:13)
[2024-08-29] MEDS ORDERED: Iopamidol 612 MG/ML 100 ML Bottle IVPUSH ONE (03:15)
[2024-08-29] MEDS: Lidocaine 2% Jelly 10 ML Urojet MUCMEM ONE (11:38)
[2024-08-29] MEDS: HYDROmorphone 0.5 MG/0.5 ML Syringe IVPUSH PRN (11:40)
[2024-08-29] MEDS: Oxybutynin 5 MG Tab.ER PO SCH (20:02)
[2024-08-29] MEDS: Magnesium Oxide 400 MG Tab PO SCH (20:02)
[2024-08-29] MEDS: Docusate Sodium 100 MG Cap PO SCH (20:02)
[2024-08-29] MEDS: DAPTOmycin 500 MG Vial IVPUSH SCH (20:56)
[2024-08-30 07:36] VITALS: BP 119/74; PULSE 63
[2024-08-30] MEDS: [UNRECOGNIZED DRUG - OTHER] PO SCH (08:54)
[2024-08-30] MEDS ORDERED: HYDROCORTISONE ACETATE 25 MG SCH (09:00)
== END 2024-08-30 12:00 | disposition home or self-care (01) | DRG 699 ==
LOC: DL.ED 03:13 → DL.MS 08:25 → OBSVTOIN 08-28 15:56
PROVIDERS: ADMIT Internal Medicine; ATTEND Internal Medicine
DX: T83.511A Infection and inflammatory reaction due to indwelling urethral catheter, initial encounter (principal); N17.9 Acute kidney failure, unspecified; N39.0 Urinary tract infection, site not specified; Y84.6 Urinary catheterization as the cause of abnormal reaction of the patient, or of later complication, without mention of misadventure at the time of the procedure; R33.9 Retention of urine, unspecified; H54.7 Unspecified visual loss; Z79.891 Long term (current) use of opiate analgesic; Y92.89 Other specified places as the place of occurrence of the external cause; Z85.46 Personal history of malignant neoplasm of prostate; Z90.79 Acquired absence of other genital organ(s); Z79.2 Long term (current) use of antibiotics; Z79.1 Long term (current) use of non-steroidal anti-inflammatories (NSAID); Z79.899 Other long term (current) drug therapy; Z87.81 Personal history of (healed) traumatic fracture; Z90.89 Acquired absence of other organs; Z98.890 Other specified postprocedural states; Z87.891 Personal history of nicotine dependence; Z92.3 Personal history of irradiation
CPT/HCPCS: 36415 ×2; 70450; 74177; 80048; 80053; 81001; 83605 ×2; 83690; 83735; 85025 ×2; 87040 ×2; 87086; 96361; 96374; 96375; 97161; 99285; A9270 ×7; J0696 ×4; J1171; J2060; J2405; J7030 ×7; Q9967; 51702; 82550; 96376; 99223; 99232; 99239; 99284; G0378; J0878

== ENCOUNTER 2024-09-07 08:07 | Emergency (ER) | payer MEDICARE, OTHER ==
[2024-09-07] MEDS: Acetaminophen/HYDROcodone 325-10 MG Tab PO ONE (09:19)
[2024-09-07 09:26] VITALS: BP 138/72; PULSE 88
== END 2024-09-07 09:27 | disposition home or self-care (01) ==
LOC: DL.ED 08:07
DX: R31.9 Hematuria, unspecified (principal); Z85.46 Personal history of malignant neoplasm of prostate; Z79.899 Other long term (current) drug therapy; Z79.891 Long term (current) use of opiate analgesic
CPT/HCPCS: 99283; A9270

== ENCOUNTER 2024-11-15 11:35 | Emergency (ER) | payer MEDICARE, OTHER ==
[2024-11-15] MEDS: Lidocaine 2% Jelly 10 ML Urojet MUCMEM ONE (12:05)
[2024-11-15 12:15] LABS: BASOPHILS PERCENT AUTO 0.9 % (0.0-1.0); EOSINOPHILS PERCENT AUTO 5.5 % (1.0-3.0); HEMATOCRIT 34.9 % (40.0-54.0); HEMOGLOBIN 11.3 g/dL (14.0-18.0); LYMPHOCYTES PERCENT AUTO 24.5 % (20.5-50.1); MEAN CORPUSCULAR HEMOGLOBIN 24.2 pg (27.0-34.0); MEAN CORPUSCULAR HGB CONC 32.4 g/dL (33.0-35.0); MEAN CORPUSCULAR VOLUME 74.7 fL (80-100); MONOCYTES PERCENT AUTO 7.8 % (2-8); NEUTROPHILS PERCENT AUTO 61.3 % (42.2-75.2); PLATELET COUNT,PLT 313 10^3/uL (150-450); RED BLOOD CELL COUNT 4.67 10^6/uL (4.6-6.2); WHITE BLOOD CELL COUNT,WBC 6.7 10^3/uL (5.0-10.0)
[2024-11-15 12:23] LABS: APPEARANCE,URINE SLIGHTLY CLOUDY (CLEAR); BILIRUBIN,URINE NEGATIVE (NEGATIVE); COLOR,URINE RED (YELLOW); GLUCOSE,URINE NEGATIVE (NEGATIVE); KETONES,URINE NEGATIVE (NEGATIVE); LEUKOCYTE ESTERASE,URINE LARGE (NEGATIVE); NITRITE,URINE NEGATIVE (NEGATIVE); OCCULT BLOOD,URINE LARGE (NEGATIVE); PROTEIN,URINE >=300 (NEGATIVE); UROBILINOGEN,URINE 0.2 mg/dL (0.2-1.0)
[2024-11-15 12:29] LABS: ANION GAP 19.3 mEq/L (7-13); BLOOD UREA NITROGEN,BUN 15 mg/dL (7-18); CARBON DIOXIDE,CO2 22 mmol/L (21-32); CHLORIDE,CL 106 mmol/L (98-107); CREATININE 1.02 mg/dL (0.70-1.30); ESTIMATED GFR 79 mL/min (>=60); GLUCOSE RANDOM 99 mg/dL (70-99); POTASSIUM,K 3.3 mmol/L (3.5-5.1); SODIUM,NA 144 mmol/L (136-145)
[2024-11-15 12:32] LABS: RBC,URINE >100 /HPF (0-5); WBC,URINE PACKED /HPF (0-5/HPF)
[2024-11-15 12:33] LABS: BACTERIA,URINE MANY /HPF (0-FEW/HPF); EPITHELIAL CELLS,URINE FEW /HPF (NOT SEEN); MUCUS,URINE RARE /LPF (NOT SEEN)
[2024-11-15 13:12] VITALS: BP 98/66; PULSE 71
== END 2024-11-15 14:00 | disposition home or self-care (01) ==
LOC: DL.ED 11:35
DX: R31.9 Hematuria, unspecified (principal); R33.9 Retention of urine, unspecified; Z79.899 Other long term (current) drug therapy
CPT/HCPCS: 36415; 51702; 80048; 81001; 85025; 87086; 87088; 87186; 99283; A9270; 99284

== ENCOUNTER 2025-01-02 02:21 | Emergency (ER) | payer MEDICARE, OTHER ==
[2025-01-02] MEDS: Lidocaine 2% Jelly 10 ML Urojet MUCMEM ONE (02:45)
[2025-01-02 03:22] LABS: APPEARANCE,URINE SLIGHTLY CLOUDY (CLEAR); BILIRUBIN,URINE NEGATIVE (NEGATIVE); COLOR,URINE DARK YELLOW (YELLOW); GLUCOSE,URINE NEGATIVE (NEGATIVE); KETONES,URINE NEGATIVE (NEGATIVE); LEUKOCYTE ESTERASE,URINE LARGE (NEGATIVE); NITRITE,URINE NEGATIVE (NEGATIVE); OCCULT BLOOD,URINE LARGE (NEGATIVE); PROTEIN,URINE 100 (NEGATIVE); UROBILINOGEN,URINE 0.2 mg/dL (0.2-1.0)
[2025-01-02 03:33] LABS: BACTERIA,URINE FEW /HPF (0-FEW/HPF); EPITHELIAL CELLS,URINE RARE /HPF (NOT SEEN); MUCUS,URINE FEW /LPF (NOT SEEN); RBC,URINE SEMI-PACKED /HPF (0-5)
[2025-01-02 03:58] VITALS: BP 140/103; PULSE 62
== END 2025-01-02 03:55 | disposition home or self-care (01) ==
LOC: DL.ED 02:21
DX: R33.9 Retention of urine, unspecified (principal); Z79.899 Other long term (current) drug therapy
CPT/HCPCS: 51702; 81001; 87086; 87088; 87186; 99283; A4320; A9270

== ENCOUNTER 2025-01-06 10:46 | Emergency (ER) | payer MEDICARE, OTHER ==
[2025-01-06] MEDS ORDERED: Sodium Chloride 0.9% 10 ML Syringe FLUSH PRN (11:26)
[2025-01-06] MEDS: HYDROmorphone 1 MG/ML Syringe IVPUSH ONE (11:35)
[2025-01-06] MEDS: Lidocaine 2% Jelly 10 ML Urojet MUCMEM ONE (11:50)
[2025-01-06] MEDS: Sodium Chloride 0.9% 1,000 ML IV ONE (12:32)
[2025-01-06] MEDS: diazePAM 10 MG/2 ML Syringe IVPUSH ONE (13:04)
[2025-01-06 13:31] VITALS: BP 121/68; PULSE 54
== END 2025-01-06 14:43 | disposition home or self-care (01) ==
LOC: DL.ED 10:46
DX: N32.89 Other specified disorders of bladder (principal); Z48.03 Encounter for change or removal of drains
CPT/HCPCS: 96361; 96374; 99284; A9270; J1171; J7030

== ENCOUNTER 2025-01-25 03:22 | Emergency (ER) | payer MEDICARE, OTHER ==
[2025-01-25] MEDS: Lidocaine 2% Jelly 10 ML Urojet MUCMEM ONE (03:34)
[2025-01-25 03:51] LABS: APPEARANCE,URINE TURBID (CLEAR); BILIRUBIN,URINE SMALL (NEGATIVE); COLOR,URINE RED (YELLOW); GLUCOSE,URINE NEGATIVE (NEGATIVE); KETONES,URINE TRACE (NEGATIVE); LEUKOCYTE ESTERASE,URINE SMALL (NEGATIVE); NITRITE,URINE NEGATIVE (NEGATIVE); OCCULT BLOOD,URINE LARGE (NEGATIVE); PROTEIN,URINE >=300 (NEGATIVE)
[2025-01-25 04:20] LABS: BACTERIA,URINE FEW /HPF (0-FEW/HPF); EPITHELIAL CELLS,URINE RARE /HPF (NOT SEEN); RBC,URINE PACKED /HPF (0-5)
[2025-01-25 04:33] VITALS: BP 147/84; PULSE 72
== END 2025-01-25 04:44 | disposition home or self-care (01) ==
LOC: DL.ED 03:22
DX: R31.0 Gross hematuria (principal); R33.9 Retention of urine, unspecified; Z79.899 Other long term (current) drug therapy
CPT/HCPCS: 51702; 81001; 87086; 99283; 99284; A4320; A9270

== ENCOUNTER 2025-01-28 16:15 | Emergency (ER) | payer MEDICARE, OTHER ==
[2025-01-28] MEDS ORDERED: Lidocaine 2% Jelly 10 ML Urojet MUCMEM ONE (16:58)
[2025-01-28 17:30] VITALS: BP 169/93; PULSE 108
== END 2025-01-28 17:15 | disposition home or self-care (01) ==
LOC: DL.ED 16:15
DX: T83.098A Other mechanical complication of other urinary catheter, initial encounter (principal); R31.0 Gross hematuria; R31.9 Hematuria, unspecified
CPT/HCPCS: 51700; 51798; 99283; A4320

== ENCOUNTER 2025-01-30 00:34 | Emergency (ER) | payer MEDICARE, OTHER ==
[2025-01-30 03:21] LABS: BASOPHILS PERCENT AUTO 0.8 % (0.0-1.0); EOSINOPHILS PERCENT AUTO 3.4 % (1.0-3.0); HEMATOCRIT 32.5 % (40.0-54.0); HEMOGLOBIN 10.1 g/dL (14.0-18.0); LYMPHOCYTES PERCENT AUTO 18.5 % (20.5-50.1); MEAN CORPUSCULAR HEMOGLOBIN 22.2 pg (27.0-34.0); MEAN CORPUSCULAR HGB CONC 31.1 g/dL (33.0-35.0); MEAN CORPUSCULAR VOLUME 71.6 fL (80-100); MONOCYTES PERCENT AUTO 11.7 % (2-8); NEUTROPHILS PERCENT AUTO 65.6 % (42.2-75.2); PLATELET COUNT,PLT 285 10^3/uL (150-450); RED BLOOD CELL COUNT 4.54 10^6/uL (4.6-6.2); WHITE BLOOD CELL COUNT,WBC 7.1 10^3/uL (5.0-10.0)
[2025-01-30 03:39] LABS: ANION GAP 10.7 mEq/L (7-13); CALCIUM 9.3 mg/dL (8.5-10.1); CREATININE 0.93 mg/dL (0.70-1.30); EST CRCL DRUG DOSING (CG) 77.59 mL/min; POTASSIUM,K 3.7 mmol/L (3.5-5.1)
[2025-01-30] MEDS ORDERED: Naloxone 2 MG/2 ML Syringe IVPUSH PRN (04:20)
[2025-01-30 04:24] LABS: APPEARANCE,URINE TURBID (CLEAR); BILIRUBIN,URINE SMALL (NEGATIVE); COLOR,URINE RED (YELLOW); GLUCOSE,URINE NEGATIVE (NEGATIVE); KETONES,URINE NEGATIVE (NEGATIVE); LEUKOCYTE ESTERASE,URINE SMALL (NEGATIVE); NITRITE,URINE NEGATIVE (NEGATIVE); OCCULT BLOOD,URINE LARGE (NEGATIVE); PH,URINE 5.5 (5.0-9.0); PROTEIN,URINE >=300 (NEGATIVE); UROBILINOGEN,URINE 0.2 mg/dL (0.2-1.0)
[2025-01-30] MEDS: Ondansetron 4 MG/2 ML SDV IVPUSH ONE (04:34)
[2025-01-30 04:36] LABS: EPITHELIAL CELLS,URINE FEW /HPF (NOT SEEN); MUCUS,URINE FEW /LPF (NOT SEEN); RBC,URINE PACKED /HPF (0-5); WBC,URINE 20-30 /HPF (0-5/HPF)
[2025-01-30] MEDS: HYDROmorphone 1 MG/ML Syringe IVPUSH ONE (04:36)
[2025-01-30 04:37] LABS: YEAST,URINE MODERATE /HPF (NOT SEEN)
[2025-01-30 04:38] LABS: BACTERIA,URINE MODERATE /HPF (0-FEW/HPF); GRANULAR CASTS,URINE RARE
[2025-01-30 05:51] VITALS: BP 130/76; PULSE 78
== END 2025-01-30 05:43 ==
LOC: DL.ED 00:34
DX: T83.098A Other mechanical complication of other urinary catheter, initial encounter (principal); F17.200 Nicotine dependence, unspecified, uncomplicated; Z79.899 Other long term (current) drug therapy
CPT/HCPCS: 36415; 51700; 51702; 51798; 80048; 81001; 85025; 87086; 99284; J1171; J2405